=== PATIENT | female | born 1995 | race Caucasian/White ===

== ENCOUNTER 2022-10-10 02:44 | Emergency (ER) | payer OTHER, SELFPAY ==
--- NOTE | ~2022-10-10 | CT_ITS ---
EXAMINATION: CT ABDOMEN AND PELVIS WITHOUT CONTRAST CLINICAL INFORMATION: Left UVJ stone COMPARISON: None available. TECHNIQUE: Multidetector volumetric imaging was performed from the superior aspect of the liver through the pubic symphysis. Sagittal and coronal reformatted images were obtained on the technologist's workstation. This CT examination was performed using dose optimization techniques as appropriate, variously including the following: *Automated exposure control *Adjustment of mA and/or kV according to patient size (this includes techniques or standardized protocols for targeted exams where dose is matched to indication/reason for exam; i.e. extremities or head) *Use of iterative reconstruction technique DLP: 466 mGy-cm FINDINGS: LUNG BASES: The visualized lung bases are unremarkable. LIVER, GALLBLADDER, AND BILIARY TREE: The liver is normal in size, shape, and attenuation. No focal hepatic lesion or biliary ductal dilatation is identified on this noncontrast exam. The gallbladder is not clearly seen and may be contracted or absent. PANCREAS: Unremarkable. SPLEEN: Unremarkable. ADRENAL GLANDS: Unremarkable. KIDNEYS AND URETERS: No hydronephrosis or obstructing calculus identified bilaterally. BLADDER: Mildly distended and grossly unremarkable. GASTROINTESTINAL TRACT: No evidence of bowel obstruction or significant wall thickening. The appendix is unremarkable. No free air is seen. ABDOMINAL WALL: No significant hernia is appreciated. LYMPH NODES: Normal. VASCULAR: Unremarkable. PELVIC VISCERA: There is asymmetric prominence of the left adnexa, of uncertain clinical significance. Trace pelvic free fluid. OSSEOUS STRUCTURES: Unremarkable. CT/CT abdomen pelvis wo IV con IMPRESSION: 1. No hydronephrosis or obstructing calculus identified. 2. Asymmetric prominence of the left adnexa, of uncertain clinical significance. If there is clinical concern for acute ovarian pathology, this would be better assessed with pelvic ultrasound. 3. Trace pelvic free fluid, which is nonspecific and may be physiologic.
[2022-10-10 03:00] VITALS: BP 130/88; PULSE 88; O2SAT 98; BMI 27.4
[2022-10-10 03:05] VITALS: BP 104/70; PULSE 82; RESP 17; TEMP 37.1; O2SAT 97
--- NOTE | 2022-10-10 04:19 | MHC.EDTECH ---
PATIENT VITALS ARE STABLE AND ED ROUNDS ARE DONE WILL CONTINUE TO MONITOR.
--- NOTE | 2022-10-10 05:14 | ED_ITS ---
HPI - Abdominal Pain General Chief Complaint: Back Pain/Injury Stated Complaint: left plank pain Time Seen by Provider: 10/10/22 05:09 Source: patient Mode of arrival: ambulatory Limitations: no limitations History of Present Illness HPI narrative: Patient with no history of kidney stones does have family history of kidney stone noticed pain in the left flank radiating to the left lower abdomen since yesterday also has slight burning sensation when she urinates no blood in the urine no history of kidney stones in the past no fever or chills no nausea or vomiting no vaginal discharge no history of ovarian cyst Related Data Previous Rx's Medication Instructions Recorded cefuroxime axetil 250 mg tablet 250 mg PO BID 7 days #14 tabs 10/10/22 ibuprofen 600 mg tablet 600 mg PO Q6H PRN fever or pain 10/10/22 #30 tabs Allergies Allergy/AdvReac Type Severity Reaction Status Date / Time No Known Allergies Allergy Verified 10/10/22 03:13 Review of Systems Review of Systems Yes all other systems are reviewed and are negative [facility] Social History Social History Alcohol intake: never Smoked in Last 30 Days: No Use of substances other than those prescribed or required for medical reasons: No Advance Directives: No Advance Directives Information Provided: Yes Physical Exam ED Vital Signs: Vital Signs - 24 hr 10/10/22 03:05 10/10/22 05:31 10/10/22 05:48 Temperature 98.8 F 98.6 F Pulse Rate 82 62 Respiratory Rate 17 18 17 Blood Pressure 104/70 123/57 L Pulse Oximetry 97 97 Oxygen Delivery Method Room Air Room Air BMI result Body Mass Index 27.4 Appearance: Alert. Oriented X3. No acute distress. Eyes: PERRLA, No Nystagmus ENT: Pharynx normal. Oral Mucosa moist Neck: Normal inspection. Neck supple. CVS: Normal heart rate and rhythm. Pulses normal. Respiratory: No respiratory distress. Equal air entry bilateral, no wheezing/rales/rhonchi Abdomen: Soft and nontender. Bowel sounds are present, no mass palpable, no CVA tenderness Skin: Skin warm and dry. Normal skin color. Normal skin turgor. Extremities: No lower extremity edema. No calf tenderness Neuro: Oriented X 3. No motor deficit. No sensory deficit.No cerebellar signs , cranial nerves II-XII intact Medical Decision Making Medical Decision Making [facility] Narrative: Patient's CT scan negative for kidney stone shows slight fullness and left adnexa possible patient has ovarian cyst also has UTI I have discharged patient home on ibuprofen and Ceftin Lab Data [facility] Lab Attestation statement: I reviewed the patient's lab results. 10/10/22 05:43 10/10/22 05:43 Labs: Lab Results 10/10/22 10/10/22 10/10/22 Range/Units 05:11 05:11 05:43 WBC 12.0 H (4.8-10.8) X10*3/uL RBC 3.86 L (4.20-5.50) X10*6/uL Hgb 12.1 (12.0-16.0) g/dl Hct 36.3 L (37.0-47.0) % MCV 94.0 (80.0-98.0) fL MCH 31.3 (27.0-33.0) pg MCHC 33.3 (31.0-35.0) g/dl RDW 12.7 (11.0-16.0) % Plt Count 207 (160-400) X10*3/uL MPV 10.9 (9.4-12.3) fL Immature Gran % (Auto) 0.4 (0.0-0.4) % Neut % (Auto) 77.7 H (45-73) % Lymph % (Auto) 12.5 L (20-40) % [place] % (Auto) 9.1 (2-11) % Eos % (Auto) 0.1 (0-4) % Baso % (Auto) 0.2 (0-2) % Lymph # (Auto) 1.5 (1.2-4.9) X10*3/uL [place] # (Auto) 1.1 (0.1-1.2) X10*3/uL Eos # (Auto) 0.0 (0.0-0.4) X10*3/uL Baso # (Auto) 0.0 (0.0-0.2) X10*3/uL Abs Immat Gran (auto) 0.05 H (0.00-0.03) X10*3/uL Absolute Neuts (auto) 9.4 H (2.0-8.3) x10*3/uL Absolute Nucleated RBC 0.000 (0.0-0.012) X10*3/uL Nucleated RBC % (auto) 0.0 (0.0-0.2) /100WBC Sodium (135-145) mmol/L Potassium (3.3-5.1) mmol/L Chloride (96-108) mmol/L Carbon Dioxide (22-29) mmol/L Anion Gap (12-20) BUN (9-16) mg/dL Creatinine (0.5-1.4) mg/dL Estim Creat Clear Calc Estimated GFR Random Glucose (60-115) mg/dL Calcium (8.4-10.2) mg/dL Total Bilirubin (0.0-1.0) mg/dL AST (5-31) U/L ALT (0-31) U/L Alkaline Phosphatase (39-117) U/L Total Protein (6.5-8.0) g/dL Albumin (3.5-5.0) g/dL Urine Color Yellow Urine Appearance Hazy Urine pH 6.0 (5.0-9.0) Ur Specific [place] 1.015 (1.005-1.025) Urine Protein Negative (Neg-Trace) mg/dL Urine Glucose (UA) Negative (Negative) mg/dL Urine Ketones >=80 (Negative) mg/dL Urine Blood Negative (Negative) Urine Nitrite Negative (Negative) Ur Leukocyte Esterase Small (1+) H (Negative) Urine RBC 3-5 H (0-2) /HPF Urine WBC 11-20 H (0-5) /HPF Ur Squamous Epith Cells >20 (0-2) /HPF Urine Bacteria 1+ (None Seen) Hyaline Casts 0-2 (0-2) /LPF Urine Test NEGATIVE (NEGATIVE) 10/10/22 Range/Units 05:43 WBC (4.8-10.8) X10*3/uL RBC (4.20-5.50) X10*6/uL Hgb (12.0-16.0) g/dl Hct (37.0-47.0) % MCV (80.0-98.0) fL MCH (27.0-33.0) pg MCHC (31.0-35.0) g/dl RDW (11.0-16.0) % Plt Count (160-400) X10*3/uL MPV (9.4-12.3) fL Immature Gran % (Auto) (0.0-0.4) % Neut % (Auto) (45-73) % Lymph % (Auto) (20-40) % [place] % (Auto) (2-11) % Eos % (Auto) (0-4) % Baso % (Auto) (0-2) % Lymph # (Auto) (1.2-4.9) X10*3/uL [place] # (Auto) (0.1-1.2) X10*3/uL Eos # (Auto) (0.0-0.4) X10*3/uL Baso # (Auto) (0.0-0.2) X10*3/uL Abs Immat Gran (auto) (0.00-0.03) X10*3/uL Absolute Neuts (auto) (2.0-8.3) x10*3/uL Absolute Nucleated RBC (0.0-0.012) X10*3/uL Nucleated RBC % (auto) (0.0-0.2) /100WBC Sodium 136 (135-145) mmol/L Potassium 3.9 (3.3-5.1) mmol/L Chloride 107 (96-108) mmol/L Carbon Dioxide 21 L (22-29) mmol/L Anion Gap 12 (12-20) BUN 7 L (9-16) mg/dL Creatinine 0.65 (0.5-1.4) mg/dL Estim Creat Clear Calc 119.6 Estimated GFR > 60 Random Glucose 90 (60-115) mg/dL Calcium 8.9 (8.4-10.2) mg/dL Total Bilirubin 1.1 H (0.0-1.0) mg/dL AST 17 (5-31) U/L ALT 9 (0-31) U/L Alkaline Phosphatase 64 (39-117) U/L Total Protein 6.8 (6.5-8.0) g/dL Albumin 3.9 (3.5-5.0) g/dL Urine Color Urine Appearance Urine pH (5.0-9.0) Ur Specific [place] (1.005-1.025) Urine Protein (Neg-Trace) mg/dL Urine Glucose (UA) (Negative) mg/dL Urine Ketones (Negative) mg/dL Urine Blood (Negative) Urine Nitrite (Negative) Ur Leukocyte Esterase (Negative) Urine RBC (0-2) /HPF Urine WBC (0-5) /HPF Ur Squamous Epith Cells (0-2) /HPF Urine Bacteria (None Seen) Hyaline Casts (0-2) /LPF Urine Test (NEGATIVE) Medications Administered Discontinued Medications Generic Name Dose Route Start Last Admin Trade Name Freq PRN Reason Stop Dose Admin Cefuroxime Axetil 250 mg 10/10/22 06:17 10/10/22 06:29 Cefuroxime Axetil 250 Mg Tablet PO 10/10/22 06:18 250 mg ONCE ONE Administration Sodium Chloride 1,000 mls @ 999 mls/hr 10/10/22 05:14 10/10/22 06:36 Ns IV 10/10/22 06:14 Infused .Q1H1M ONE Infusion Ketorolac Tromethamine 30 mg 10/10/22 05:14 10/10/22 05:30 Ketorolac Tromethamine 30 Mg/Ml Vial IVPUSH 10/10/22 05:15 30 mg ONCE ONE Administration Morphine Sulfate 4 mg 10/10/22 05:14 10/10/22 05:31 Morphine Sulfate 4 Mg/Ml Cartridge IVPUSH 10/10/22 05:15 4 mg ONCE ONE Administration Protocol Ondansetron HCl 4 mg 10/10/22 05:14 10/10/22 05:32 Ondansetron Hcl 4 Mg/2 Ml Vial IVPUSH 10/10/22 05:15 4 mg ONCE ONE Administration Discharge Plan Discharge Clinical Impression: UTI (urinary tract infection), Ovarian cyst Patient Disposition: Home, Self-Care Instructions: Ovarian Cyst (ED), Urinary Tract Infection in Women (ED) Additional Instructions: Possible you have small cyst on the left ovary also CT scan did not show any stone You have urinary tract infection drink plenty of fluid take antibiotic as prescribed Follow with PCP if not better Prescriptions: New cefuroxime axetil 250 mg tablet 250 mg PO BID 7 Days Qty: 14 0RF ibuprofen 600 mg tablet 600 mg PO Q6H PRN (Reason: fever or pain) Qty: 30 0RF Interventions: ED Discharge Assessment Last Done: 10/10/22 06:40 Discharge Date/Time: 10/10/22 06:44
[2022-10-10 05:18] LABS: UPreg QC Valid YES; Urine Pregnancy NEGATIVE (NEGATIVE)
[2022-10-10 05:19] LABS: Appearance Urine Hazy; Color Urine Yellow; Glucose Urine UA Negative (Negative); Leukocyte Esterase Urine Small (1+) (Negative); Nitrite Urine Negative (Negative); Specific Gravity - Urine 1.015 (1.005-1.025); UMIC TRIGGER UACC YES; Urine Blood Negative (Negative); Urine Ketones >=80 mg/dL (Negative); Urine Protein Negative (Neg-Trace)
[2022-10-10 05:28] LABS: Bacteria Urine 1+ (None Seen); Hyaline Casts Urine 0-2 /LPF (0-2); Squamous Epithelial Cell Urine >20 /HPF (0-2); UACC Culture Trigger YES
[2022-10-10] MEDS: 0.9 % Sodium Chloride 1,000 ML 999 ML IV (05:30)
[2022-10-10] MEDS: Ketorolac Tromethamine 30 MG/ML VIAL IVPUSH (05:30)
[2022-10-10 05:31] VITALS: RESP 18
[2022-10-10] MEDS: Morphine Sulfate 4 MG/ML CARTRIDGE IVPUSH (05:31)
[2022-10-10] MEDS: ondansetron HCL 4 MG/2 ML VIAL IVPUSH (05:32)
[2022-10-10 05:48] VITALS: BP 123/57; PULSE 62; RESP 17; TEMP 37; O2SAT 97
[2022-10-10 05:50] LABS: Basophils Percent Auto 0.2 % (0-2); Eosinophils Percent Auto 0.1 % (0-4); Hematocrit 36.3 % (37.0-47.0); Hemoglobin 12.1 g/dl (12.0-16.0); Imm Gran Abs Auto 0.05 X10*3/uL (0.00-0.03); Imm Gran Pct Auto 0.4 % (0.0-0.4); Lymphocytes Absolute Auto 1.5 X10*3/uL (1.2-4.9); Lymphocytes Percent Auto 12.5 % (20-40); MANUAL DIFF FLAG NO; Mean Corpuscular HGB Conc 33.3 g/dl (31.0-35.0); Mean Corpuscular Hemoglobin 31.3 pg (27.0-33.0); Mean Platelet Volume 10.9 fL (9.4-12.3); Monocytes Absolute Auto 1.1 X10*3/uL (0.1-1.2); Monocytes Percent Auto 9.1 % (2-11); Neutrophils Absolute Auto 9.4 x10*3/uL (2.0-8.3); Neutrophils Percent Auto 77.7 % (45-73); Platelet Count 207 X10*3/uL (160-400); Red Blood Count 3.86 X10*6/uL (4.20-5.50); Red Cell Distribution Width 12.7 % (11.0-16.0)
[2022-10-10 06:09] LABS: Alanine Aminotransferase 9 U/L (0-31); Albumin Level 3.9 g/dL (3.5-5.0); Alkaline Phosphatase 64 U/L (39-117); Anion Gap 12 (12-20); Aspartate Amino Transferase 17 U/L (5-31); Bilirubin Total 1.1 mg/dL (0.0-1.0); Blood Urea Nitrogen 7 mg/dL (9-16); Calcium 8.9 mg/dL (8.4-10.2); Carbon Dioxide 21 mmol/L (22-29); Chloride 107 mmol/L (96-108); Creatinine Clr Calc Pharmacy 119.6; Estimated Glomerular Filt Rate > 60; Glucose Random 90 mg/dL (60-115); Potassium 3.9 mmol/L (3.3-5.1); Sodium 136 mmol/L (135-145); Total Protein 6.8 g/dL (6.5-8.0)
--- NOTE | 2022-10-10 06:36 | PC.NURSE ---
patient in the process of being discharged
== END 2022-10-10 06:44 | disposition home or self-care (01) ==
PROVIDERS: Emergency Provider Internal Medicine
DX: N39.0 Urinary tract infection, site not specified (principal); N83.202 Unspecified ovarian cyst, left side; Z87.442 Personal history of urinary calculi
CPT/HCPCS: 36415; 74176; 80053; 81001; 81025; 85025; 87086; 96361; 96374; 96375; 99284; J1885; J2270; J2405

== ENCOUNTER 2022-11-17 04:40 | Emergency (ER) | payer OTHER, SELFPAY ==
--- NOTE | ~2022-11-17 | US_ITS ---
EXAMINATION: US PELVIS CLINICAL INFORMATION: Pelvic pain COMPARISON: CT scan from 10/10/2022 TECHNIQUE: Ultrasound of the pelvis is performed using both transabdominal and transvaginal transducers along with Doppler. Transvaginal imaging is performed due to inadequate visualization transabdominally. LMP 11/03/2022 FINDINGS: Uterus: The uterus is anteverted and measures 3.4 x 3.0 x 1.9 cm. With a volume of 10.2 mL The double wall endometrial thickness is 0.4 mm. The uterus is smooth in contour and has normal myometrial echogenicity. No visible fibroid. Adnexa: Both ovaries are visualized. There is normal color flow to the adnexa. There is no ovarian torsion. There is no pelvic ascites or fluid collection. Right ovary measures 3.4 x 3.0 x 1.9 cm. With a volume of 10.2 mL. Left ovary measures 3.0 x 3.5 x 1.8 cm. With a volume of 9.9 and 1.4 x 1.5 x 1.6 cm hemorrhagic heterogeneous cysts. No free fluid seen. US/US pelvic and transvaginal IMPRESSION: Normal study with likely small corpus luteum cyst on the left
[2022-11-17 05:07] VITALS: BP 108/76; PULSE 110; RESP 16; TEMP 36.9; O2SAT 100; BMI 30.2
[2022-11-17 05:14] VITALS: BP 117/76; PULSE 101; RESP 18; TEMP 37.1; O2SAT 98
[2022-11-17 05:55] LABS: Influenza A PCR NEGATIVE (Negative); Influenza B PCR NEGATIVE (Negative); Resp Syncy Virus RNA Qual PCR NEGATIVE (Negative); SARS COV2 PCR INHOUSE NEGATIVE (Negative)
--- NOTE | 2022-11-17 07:03 | ED_ITS ---
HPI - General Adult General Chief complaint: General Medical Stated complaint: flu like symptoms Time Seen by Provider: 11/17/22 06:31 Source: patient and RN notes reviewed Mode of arrival: ambulatory Limitations: no limitations History of Present Illness HPI narrative: This is a 27-year-old female, with a past medical history of asthma, presenting to the emergency department with complaints of body aches, fever, chills, sore throat, dry cough, nausea, vomiting, lower abdominal pain, and diarrhea times Thursday. Patient states that initially her symptoms started off with body aches. She states that her symptoms have since progressed despite taking [id number] cold and flu medication. She states that she has been unable to tolerate p.o. since the onset of her symptoms. She denies any urinary symptoms. She endorses some changes in her vaginal discharge over the last several days. No other complaints or concerns at this time. MD complaint: Body aches, fevers, chills, abdominal pain Onset (ago): day(s) Radiation: non-radiation Severity: moderate Quality: aching Pain Consistency: constant Relieving factors: none Exacerbating factors: none Associated symptoms: denies other symptoms Treatments prior to arrival: none Related Data Previous Rx's Medication Instructions Recorded cefuroxime axetil 250 mg tablet 250 mg PO BID 7 days #14 tabs 10/10/22 ibuprofen 600 mg tablet 600 mg PO Q6H PRN fever or pain 10/10/22 #30 tabs doxycycline hyclate 100 mg tablet 100 mg PO BID 7 days #14 tabs 11/17/22 metronidazole 500 mg tablet 500 mg PO BID 14 days #28 tabs 11/17/22 Allergies Allergy/AdvReac Type Severity Reaction Status Date / Time No Known Allergies Allergy Verified 10/10/22 03:13 Review of Systems Review of Systems: Yes all other systems are reviewed and are negative Constitutional: Constitutional: Reports as per [facility] Social History Social History Alcohol intake: never Smoked in Last 30 Days: No Use of substances other than those prescribed or required for medical reasons: No Advance Directives: No Advance Directives Information Provided: Yes Physical Exam ED Vital Signs: Vital Signs - 24 hr 11/17/22 05:07 11/17/22 05:14 11/17/22 07:18 Temperature 98.5 F 98.7 F 98.2 F Pulse Rate 110 H 101 H 85 Respiratory Rate 16 18 20 Blood Pressure 108/76 117/76 122/87 Pulse Oximetry 100 98 98 Oxygen Delivery Method Room Air Room Air Room Air 11/17/22 08:24 Temperature 98.4 F Pulse Rate 74 Respiratory Rate 16 Blood Pressure 97/68 Pulse Oximetry 100 Oxygen Delivery Method Room Air BMI result Body Mass Index 30.2 Const General: cooperative, comfortable and no acute distress Orientation/consciousness: patient oriented x3 Limitations: no limitations HENMT Other: Oropharynx is mildly erythematous and edematous. Uvula is midline Head: Yes normal to inspection, Yes normocephalic and Yes atraumatic Ears: hearing grossly normal bilaterally General nose exam: Normal external nose present Face and sinus: Yes normal facial exam Mouth: Normal oral and palatal mucosa present, oropharynx normal and moist mucous membranes Throat: Yes posterior oropharynx normal Eyes General: appearance normal, both eyes and all related structures Eyelids: Yes eyelids normal Conjunctivae: conjunctivae normal Sclerae: sclerae normal Pupils: Equal, round and reactive pupils present EOM: EOMs intact bilaterally Neck Neck: Yes normal visual inspection, Yes full ROM and Yes no lymphadenopathy Lymphatic: no lymphadenopathy noted Chest Chest palpation & inspection: normal inspection of the chest Resp Effort & Inspection: normal respiratory effort and able to speak in complete sentences Auscultation: clear to auscultation bilaterally, no crackles, no rales, no rhonchi and no wheezes Cardio Rate: regular rate Rhythm: regular rhythm Heart sounds: S1 normal heart sound present and S2 normal heart sound present GI Other: Suprapubic tenderness to palpation, normoactive bowel sounds present in all 4 quadrants. Inspection: Yes normal to inspection Other: Pelvic examination performed, JANICE Root present during the entire examination. Scant yellow thin vaginal discharge noted in the vaginal vault. General: Yes bladder normal to palpation External Female Exam: normal external appearance, normal appearance of the urethra, No Abnormal introitus, No externally tender, No external swelling, No lesion, No laceration, No External ecchymosis (female), No urethral discharge and No lesion Speculum Exam - Vagina: normal appearance of the vagina, normal palpation and introitus not gaping Speculum Exam - Cervix: Cervical os closed Bimanual exam- vagina & uterus: normal palpation, uterine size normal and bladder normal to palpation Skin General skin exam: no rashes or lesions noted Trauma: no lacerations or abrasions Wounds: no wounds Neuro General: patient oriented x3 and moves all extremities Cranial nerves: Yes Equal, round and reactive pupils present Extrem General: Yes normal to inspection Right upper extremity: normal to inspection Left upper extremity: normal to inspection Right lower extremity: normal to inspection Left lower extremity: normal to inspection Course Reevaluation(s) Reevaluation #1: Patient was complaining of burning epigastric pain, GI cocktail was ordered and patient's symptoms have since resolved. She is still reporting lower abdominal pain, with vaginal discharge. Pelvic examination was performed, bacterial vaginosis, gonorrhea chlamydia and Trichomonas testing was performed. Patient does have cervical motion tenderness on examination. Given tenderness, will obtain pelvic ultrasound for further evaluation. Time: 09:35 Reevaluation #2: Ultrasound was reviewed revealing a corpus luteal cyst on the left, otherwise no ovarian torsion or tubo-ovarian abscess. Patient tested positive for chlamydia, will treat with ceftriaxone, doxycycline, and Flagyl. Discussed the importance of taking the entire course of antibiotics and to follow-up with her primary care physician as well as all other sexual partners as they need treatment as well. Patient understands and agrees with plan. Patient has no further questions. Patient stable for discharge. Time: 14:33 Medications Administered Discontinued Medications Generic Name Dose Route Start Last Admin Trade Name Freq PRN Reason Stop Dose Admin Acetaminophen 975 mg 11/17/22 06:53 11/17/22 08:09 Acetaminophen 325 Mg Tablet PO 11/17/22 06:54 975 mg ONCE ONE Administration Al Hydroxide/Mg Hydroxide 30 ml 11/17/22 09:13 11/17/22 09:20 Magnesium Hydrox/Alum Hydrox 30 Ml Oral.Susp PO 11/17/22 09:14 30 ml ONCE ONE Administration Sodium Chloride 1,000 mls @ 999 mls/hr 11/17/22 06:54 11/17/22 09:28 Ns IV 11/17/22 07:54 Infused .Q1H1M ONE Infusion Lidocaine HCl 15 ml 11/17/22 09:13 11/17/22 09:20 Lidocaine Hcl Viscous 2 % 15 Ml Solution MUCOUS MEM 11/17/22 09:14 15 ml ONCE ONE Administration Ondansetron HCl 4 mg 11/17/22 06:53 11/17/22 08:09 Ondansetron Odt 4 Mg Tab.Cecile RUSSO 11/17/22 06:54 4 mg ONCE ONE Administration Medical Decision Making Medical Decision Making [facility] Narrative: 27-year-old female presenting to the emergency department for evaluation fevers chills, nausea, vomiting, diarrhea, sore throat and cough x 3 days. On arrival, mildly tachycardic at 110 beats per minute, all other vital signs within normal limits. Differential diagnoses include influenza, RSV, COVID, URI, ectopic , UTI, . Given inability to tolerate p.o., current nausea and abdominal pain it is normal will obtain basic labs, UA, and 1 L of IV fluids. Differential Diagnosis Differential Diagnoses: The differential diagnosis associated with the presentation includes See above Admission/Observation Consideration of admission/observation: Escalation of care including admission/observation considered Patient would have been admitted to the hospital had her work up had any findings where hospital admission was appropriate and her clinical presentation warranted hospital admission. Lab Data [facility] Lab Attestation statement: I reviewed the patient's lab results. Negative COVID, RSV, flu 11/17/22 08:05 11/17/22 08:05 Labs: Lab Results 11/17/22 11/17/22 11/17/22 Range/Units 05:11 08:05 08:05 WBC 12.0 H (4.8-10.8) X10*3/uL RBC 4.22 (4.20-5.50) X10*6/uL Hgb 13.4 (12.0-16.0) g/dl Hct 39.5 (37.0-47.0) % MCV 93.6 (80.0-98.0) fL MCH 31.8 (27.0-33.0) pg MCHC 33.9 (31.0-35.0) g/dl RDW 12.6 (11.0-16.0) % Plt Count 291 D (160-400) X10*3/uL MPV 11.1 (9.4-12.3) fL Immature Gran % (Auto) 0.3 (0.0-0.4) % Neut % (Auto) 68.8 (45-73) % Lymph % (Auto) 17.9 L (20-40) % [place] % (Auto) 12.7 H (2-11) % Eos % (Auto) 0.0 (0-4) % Baso % (Auto) 0.3 (0-2) % Lymph # (Auto) 2.1 (1.2-4.9) X10*3/uL [place] # (Auto) 1.5 H (0.1-1.2) X10*3/uL Eos # (Auto) 0.0 (0.0-0.4) X10*3/uL Baso # (Auto) 0.0 (0.0-0.2) X10*3/uL Abs Immat Gran (auto) 0.03 (0.00-0.03) X10*3/uL Absolute Neuts (auto) 8.2 (2.0-8.3) x10*3/uL Absolute Nucleated RBC 0.000 (0.0-0.012) X10*3/uL Nucleated RBC % (auto) 0.0 (0.0-0.2) /100WBC Smear Tech's Comments VERIFIED Sodium 140 (135-145) mmol/L Potassium 3.5 (3.3-5.1) mmol/L Chloride 106 (96-108) mmol/L Carbon Dioxide 23 (22-29) mmol/L Anion Gap 15 (12-20) BUN 6 L (9-16) mg/dL Creatinine 0.77 (0.5-1.4) mg/dL Estim Creat Clear Calc 101.7 Estimated GFR > 60 Random Glucose 96 (60-115) mg/dL Calcium 9.3 (8.4-10.2) mg/dL Magnesium 2.0 (1.6-2.6) mg/dL Total Bilirubin 0.3 (0.0-1.0) mg/dL Direct Bilirubin 0.2 (0.0-0.5) mg/dL AST 13 (5-31) U/L ALT 8 (0-31) U/L Alkaline Phosphatase 90 (39-117) U/L Total Protein 7.8 (6.5-8.0) g/dL Albumin 4.1 (3.5-5.0) g/dL Lipase 15 (8-78) U/L Urine Color Urine Appearance Urine pH (5.0-9.0) Ur Specific [place] (1.005-1.025) Urine Protein (Neg-Trace) mg/dL Urine Glucose (UA) (Negative) mg/dL Urine Ketones (Negative) mg/dL Urine Blood (Negative) Urine Nitrite (Negative) Ur Leukocyte Esterase (Negative) Urine RBC (0-2) /HPF Urine WBC (0-5) /HPF Ur Squamous Epith Cells (0-2) /HPF Urine Bacteria (None Seen) Hyaline Casts (0-2) /LPF Urine Test (NEGATIVE) Chlam trachomat DNA PCR (Not Detect.) Influenza Type A (PCR) NEGATIVE (Negative) Influenza Type B (PCR) NEGATIVE (Negative) N.gonorrhoeae DNA (PCR) (Not Detect.) RSV RNA Qual (PCR) NEGATIVE (Negative) SARS-CoV-2 RNA (RT-PCR) NEGATIVE (Negative) S. pyogenes GrpA CLYDE (Negative) 11/17/22 11/17/22 11/17/22 Range/Units 08:05 08:27 08:27 WBC (4.8-10.8) X10*3/uL RBC (4.20-5.50) X10*6/uL Hgb (12.0-16.0) g/dl Hct (37.0-47.0) % MCV (80.0-98.0) fL MCH (27.0-33.0) pg MCHC (31.0-35.0) g/dl RDW (11.0-16.0) % Plt Count (160-400) X10*3/uL MPV (9.4-12.3) fL Immature Gran % (Auto) (0.0-0.4) % Neut % (Auto) (45-73) % Lymph % (Auto) (20-40) % [place] % (Auto) (2-11) % Eos % (Auto) (0-4) % Baso % (Auto) (0-2) % Lymph # (Auto) (1.2-4.9) X10*3/uL [place] # (Auto) (0.1-1.2) X10*3/uL Eos # (Auto) (0.0-0.4) X10*3/uL Baso # (Auto) (0.0-0.2) X10*3/uL Abs Immat Gran (auto) (0.00-0.03) X10*3/uL Absolute Neuts (auto) (2.0-8.3) x10*3/uL Absolute Nucleated RBC (0.0-0.012) X10*3/uL Nucleated RBC % (auto) (0.0-0.2) /100WBC Smear Tech's Comments Sodium (135-145) mmol/L Potassium (3.3-5.1) mmol/L Chloride (96-108) mmol/L Carbon Dioxide (22-29) mmol/L Anion Gap (12-20) BUN (9-16) mg/dL Creatinine (0.5-1.4) mg/dL Estim Creat Clear Calc Estimated GFR Random Glucose (60-115) mg/dL Calcium (8.4-10.2) mg/dL Magnesium (1.6-2.6) mg/dL Total Bilirubin (0.0-1.0) mg/dL Direct Bilirubin (0.0-0.5) mg/dL AST (5-31) U/L ALT (0-31) U/L Alkaline Phosphatase (39-117) U/L Total Protein (6.5-8.0) g/dL Albumin (3.5-5.0) g/dL Lipase (8-78) U/L Urine Color Yellow Urine Appearance Clear Urine pH 6.0 (5.0-9.0) Ur Specific [place] >= 1.030 H (1.005-1.025) Urine Protein 30 (1+) H (Neg-Trace) mg/dL Urine Glucose (UA) Negative (Negative) mg/dL Urine Ketones >=160 (Negative) mg/dL Urine Blood Negative (Negative) Urine Nitrite Negative (Negative) Ur Leukocyte Esterase Negative (Negative) Urine RBC 0-2 (0-2) /HPF Urine WBC 0-5 (0-5) /HPF Ur Squamous Epith Cells 3-5 (0-2) /HPF Urine Bacteria 1+ (None Seen) Hyaline Casts 0-2 (0-2) /LPF Urine Test NEGATIVE (NEGATIVE) Chlam trachomat DNA PCR (Not Detect.) Influenza Type A (PCR) (Negative) Influenza Type B (PCR) (Negative) N.gonorrhoeae DNA (PCR) (Not Detect.) RSV RNA Qual (PCR) (Negative) SARS-CoV-2 RNA (RT-PCR) (Negative) S. pyogenes GrpA CLYDE Negative (Negative) 11/17/22 Range/Units 09:32 WBC (4.8-10.8) X10*3/uL RBC (4.20-5.50) X10*6/uL Hgb (12.0-16.0) g/dl Hct (37.0-47.0) % MCV (80.0-98.0) fL MCH (27.0-33.0) pg MCHC (31.0-35.0) g/dl RDW (11.0-16.0) % Plt Count (160-400) X10*3/uL MPV (9.4-12.3) fL Immature Gran % (Auto) (0.0-0.4) % Neut % (Auto) (45-73) % Lymph % (Auto) (20-40) % [place] % (Auto) (2-11) % Eos % (Auto) (0-4) % Baso % (Auto) (0-2) % Lymph # (Auto) (1.2-4.9) X10*3/uL [place] # (Auto) (0.1-1.2) X10*3/uL Eos # (Auto) (0.0-0.4) X10*3/uL Baso # (Auto) (0.0-0.2) X10*3/uL Abs Immat Gran (auto) (0.00-0.03) X10*3/uL Absolute Neuts (auto) (2.0-8.3) x10*3/uL Absolute Nucleated RBC (0.0-0.012) X10*3/uL Nucleated RBC % (auto) (0.0-0.2) /100WBC Smear Tech's Comments Sodium (135-145) mmol/L Potassium (3.3-5.1) mmol/L Chloride (96-108) mmol/L Carbon Dioxide (22-29) mmol/L Anion Gap (12-20) BUN (9-16) mg/dL Creatinine (0.5-1.4) mg/dL Estim Creat Clear Calc Estimated GFR Random Glucose (60-115) mg/dL Calcium (8.4-10.2) mg/dL Magnesium (1.6-2.6) mg/dL Total Bilirubin (0.0-1.0) mg/dL Direct Bilirubin (0.0-0.5) mg/dL AST (5-31) U/L ALT (0-31) U/L Alkaline Phosphatase (39-117) U/L Total Protein (6.5-8.0) g/dL Albumin (3.5-5.0) g/dL Lipase (8-78) U/L Urine Color Urine Appearance Urine pH (5.0-9.0) Ur Specific [place] (1.005-1.025) Urine Protein (Neg-Trace) mg/dL Urine Glucose (UA) (Negative) mg/dL Urine Ketones (Negative) mg/dL Urine Blood (Negative) Urine Nitrite (Negative) Ur Leukocyte Esterase (Negative) Urine RBC (0-2) /HPF Urine WBC (0-5) /HPF Ur Squamous Epith Cells (0-2) /HPF Urine Bacteria (None Seen) Hyaline Casts (0-2) /LPF Urine Test (NEGATIVE) Chlam trachomat DNA PCR DETECTED A (Not Detect.) Influenza Type A (PCR) (Negative) Influenza Type B (PCR) (Negative) N.gonorrhoeae DNA (PCR) NOT DETECTED (Not Detect.) RSV RNA Qual (PCR) (Negative) SARS-CoV-2 RNA (RT-PCR) (Negative) S. pyogenes GrpA CLYDE (Negative) Radiology Impression Discussion of test interpretation with radiology: I have reviewed the radiologist's reading. Discharge Plan Discharge Clinical Impression: Acute pelvic inflammatory disease (PID), Chlamydia Patient Disposition: Home, Self-Care Instructions: Pelvic Inflammatory Disease (ED), Chlamydia (ED), Sexually Transmitted Diseases (ED), Safe Sex Practices (ED) Additional Instructions: You tested negative for COVID, flu, and strep throat. You tested positive for chlamydia today. We are treating you with a dose of ceftriaxone in the department today as well as prescription of doxycycline and Flagyl. Please complete entire course of antibiotics even if your feeling better. Do not have intercourse until you are completely through all your medications. Please inform all sexual partners that you tested positive for chlamydia as they also need treatment as well. Your ultrasound showed a cyst on the left otherwise it was unremarkable. You may take ibuprofen or Tylenol as needed for pain If any new or worsening symptoms occur including but not limited to worsening pain, nausea, vomiting, chest pain or shortness of breath, please return for re- evaluation. Prescriptions: New doxycycline hyclate 100 mg tablet 100 mg PO BID 7 Days Qty: 14 0RF metronidazole 500 mg tablet 500 mg PO BID 14 Days Qty: 28 0RF No Action cefuroxime axetil 250 mg tablet 250 mg PO BID 7 Days Qty: 14 0RF ibuprofen 600 mg tablet 600 mg PO Q6H PRN (Reason: fever or pain) Qty: 30 0RF
[2022-11-17 07:18] VITALS: BP 122/87; PULSE 85; RESP 20; TEMP 36.8; O2SAT 98
[2022-11-17] MEDS: 0.9 % Sodium Chloride 1,000 ML 999 ML IV (08:07)
[2022-11-17] MEDS: Ondansetron ODT 4 MG TAB.RAPDIS TRANSLINGU (08:09)
[2022-11-17] MEDS: Acetaminophen 325 MG TABLET 975 MG PO (08:09)
[2022-11-17 08:18] LABS: Basophils Percent Auto 0.3 % (0-2); Hematocrit 39.5 % (37.0-47.0); Hemoglobin 13.4 g/dl (12.0-16.0); Imm Gran Abs Auto 0.03 X10*3/uL (0.00-0.03); Imm Gran Pct Auto 0.3 % (0.0-0.4); Lymphocytes Absolute Auto 2.1 X10*3/uL (1.2-4.9); Lymphocytes Percent Auto 17.9 % (20-40); MANUAL DIFF FLAG SCAN; Mean Corpuscular HGB Conc 33.9 g/dl (31.0-35.0); Mean Corpuscular Hemoglobin 31.8 pg (27.0-33.0); Mean Corpuscular Volume 93.6 fL (80.0-98.0); Mean Platelet Volume 11.1 fL (9.4-12.3); Monocytes Absolute Auto 1.5 X10*3/uL (0.1-1.2); Monocytes Percent Auto 12.7 % (2-11); Neutrophils Absolute Auto 8.2 x10*3/uL (2.0-8.3); Neutrophils Percent Auto 68.8 % (45-73); Platelet Count 291 X10*3/uL (160-400); Red Blood Count 4.22 X10*6/uL (4.20-5.50); Red Cell Distribution Width 12.6 % (11.0-16.0); SCAN SMEAR FLAG 1
[2022-11-17 08:24] VITALS: BP 97/68; PULSE 74; RESP 16; TEMP 36.9; O2SAT 100
[2022-11-17 08:28] LABS: IDNOW Serial# 08D9AD1C; Strep A Nucleic Acid Negative (Negative)
[2022-11-17 08:36] LABS: Appearance Urine Clear; Color Urine Yellow; Glucose Urine UA Negative (Negative); Leukocyte Esterase Urine Negative (Negative); Nitrite Urine Negative (Negative); Specific Gravity - Urine >= 1.030 (1.005-1.025); UMIC TRIGGER UACC YES; Urine Blood Negative (Negative); Urine Ketones >=160 mg/dL (Negative); Urine Protein 30 (1+) mg/dL (Neg-Trace)
[2022-11-17 08:39] LABS: UPreg QC Valid YES; Urine Pregnancy NEGATIVE (NEGATIVE)
[2022-11-17 08:39] LABS: Alanine Aminotransferase 8 U/L (0-31); Albumin Level 4.1 g/dL (3.5-5.0); Alkaline Phosphatase 90 U/L (39-117); Anion Gap 15 (12-20); Aspartate Amino Transferase 13 U/L (5-31); Bilirubin Direct 0.2 mg/dL (0.0-0.5); Bilirubin Total 0.3 mg/dL (0.0-1.0); Blood Urea Nitrogen 6 mg/dL (9-16); Calcium 9.3 mg/dL (8.4-10.2); Carbon Dioxide 23 mmol/L (22-29); Chloride 106 mmol/L (96-108); Creatinine Clr Calc Pharmacy 101.7; Estimated Glomerular Filt Rate > 60; Glucose Random 96 mg/dL (60-115); Lipase 15 U/L (8-78); Potassium 3.5 mmol/L (3.3-5.1); SLIDE REVIEW VERIFIED; Sodium 140 mmol/L (135-145); Total Protein 7.8 g/dL (6.5-8.0)
[2022-11-17 08:50] LABS: Bacteria Urine 1+ (None Seen); Hyaline Casts Urine 0-2 /LPF (0-2); RBC Urine 0-2 /HPF (0-2); WBC Urine 0-5 /HPF (0-5)
[2022-11-17] MEDS: Magnesium Hydrox/Alum Hydrox 30 ML ORAL.SUSP PO (09:20)
[2022-11-17] MEDS: Lidocaine HCl Viscous 2 % 15 ML SOLUTION MUCOUS MEM (09:20)
[2022-11-17 11:14] LABS: CT PCR DETECTED (Not Detect.); NG PCR NOT DETECTED (Not Detect.)
[2022-11-17 14:56] VITALS: BP 133/87; PULSE 70; RESP 16; TEMP 36.6; O2SAT 100
[2022-11-17] MEDS: cefTRIAXone sodium 500 MG, Lidocaine HCl 1 % MPF 1 ML IM (15:00)
[2022-11-18 09:28] LABS: BV Int Neg Control Negative (Negative); BV Int Pos Control Positive (Positive)
== END 2022-11-17 15:05 | disposition home or self-care (01) ==
PROVIDERS: Physician Assistant Medical; Emergency Provider Emergency Medicine; PCP Pediatrics
DX: N73.0 Acute parametritis and pelvic cellulitis (principal); A74.9 Chlamydial infection, unspecified; M79.10 Myalgia, unspecified site; R50.9 Fever, unspecified; R05.9 Cough, unspecified; R10.2 Pelvic and perineal pain; R11.2 Nausea with vomiting, unspecified; Z20.822 Contact with and (suspected) exposure to COVID-19; Z20.828 Contact with and (suspected) exposure to other viral communicable diseases; Z79.899 Other long term (current) drug therapy
CPT/HCPCS: 0241U; 0353U; 36415; 76830; 76856; 80048; 80076; 81001; 81025; 83690; 83735; 85025; 87480; 87510; 87651; 87660; 96360; 96372; 99284; 99285; J0696

== ENCOUNTER 2023-02-25 13:44 | Emergency (ER) | payer OTHER, SELFPAY ==
[2023-02-25 15:09] VITALS: BP 121/60; PULSE 73; RESP 18; TEMP 36.4; O2SAT 100; BMI 27.5
--- NOTE | 2023-02-25 15:10 | ED_ITS ---
HPI - General Adult General Chief complaint: Urogenital-Female Stated complaint: ? UTI Related Data Previous Rx's Medication Instructions Recorded cefuroxime axetil 250 mg tablet 250 mg PO BID 7 days #14 tabs 10/10/22 ibuprofen 600 mg tablet 600 mg PO Q6H PRN fever or pain 10/10/22 #30 tabs doxycycline hyclate 100 mg tablet 100 mg PO BID 7 days #14 tabs 11/17/22 metronidazole 500 mg tablet 500 mg PO BID 14 days #28 tabs 11/17/22 Allergies Allergy/AdvReac Type Severity Reaction Status Date / Time No Known Allergies Allergy Verified 02/25/23 15:12 [facility] Social History Social History Alcohol intake: never Advance Directives: No Physical Exam ED Vital Signs: BMI result Body Mass Index 27.5 Course Course Course Narrative: This is an RME: Additional HPI, ROS, PE not included below will be deferred to primary provider. This is [id number] presenting to the emergency department with complaints of urinary frequency, urgency, dysuria times several days. No abnormal vaginal discharge or bleeding. No concerns for sexually transmitted infections. She has a history of urinary tract infections in the past and symptoms feel similar. No other complaints or concerns at this time. Plan: UA, U preg Reevaluation(s) Reevaluation #1: pt eloped prior to completing treatment Discharge Plan Discharge Clinical Impression: Dysuria Patient Disposition: Left W/O Completing Treatment Prescriptions: No Action cefuroxime axetil 250 mg tablet 250 mg PO BID 7 Days Qty: 14 0RF ibuprofen 600 mg tablet 600 mg PO Q6H PRN (Reason: fever or pain) Qty: 30 0RF doxycycline hyclate 100 mg tablet 100 mg PO BID 7 Days Qty: 14 0RF metronidazole 500 mg tablet 500 mg PO BID 14 Days Qty: 28 0RF Discharge Date/Time: 02/25/23 17:31
== END 2023-02-25 17:31 | disposition left against medical advice (07) ==
PROVIDERS: Emergency Provider Emergency Medicine
DX: R30.0 Dysuria (principal); R35.0 Frequency of micturition; Z53.21 Procedure and treatment not carried out due to patient leaving prior to being seen by health care provider
CPT/HCPCS: 99281

== ENCOUNTER 2023-04-25 22:36 | Emergency (ER) | payer OTHER, SELFPAY ==
--- NOTE | ~2023-04-25 | CT_ITS ---
EXAMINATION CT HEAD WITHOUT CONTRAST CT CERVICAL SPINE WITHOUT CONTRAST CLINICAL INFORMATION: Injury, pain COMPARISON: None TECHNIQUE: CT of the head was performed without intravenous contrast. Reformatted axial, coronal, and sagittal images were reviewed. Then, multidetector CT of the cervical spine was performed without intravenous contrast. Reformatted axial, coronal and sagittal images were reviewed. This CT examination was performed using dose optimization techniques as appropriate, variously including the following: *Automated exposure control *Adjustment of mA and/or kV according to patient size (this includes techniques or standardized protocols for targeted exams where dose is matched to indication/reason for exam; i.e. extremities or head) *Use of iterative reconstruction technique DLP: 832 mGy-cm FINDINGS: HEAD: No intracranial hemorrhage, extra-axial fluid collection, or midline shift is identified. Rubio-white matter differentiation is preserved. The ventricles are within normal limits. Basal cisterns are within normal limits. Left maxillary mucous retention cyst. Mastoid air cells and middle ear cavities are clear. No acute calvarial fractures. CERVICAL SPINE: There is no fracture, malalignment or prevertebral soft tissue abnormality seen in the cervical spine. There is no abnormal widening of the predental space, separation of the lateral masses of C1 or facet joint distraction. Vertebral body and intervertebral disc height are normal. No significant central canal or neuroforaminal stenosis. The visualized portions of the lung parenchyma is unremarkable. CT/CT head/brain wo IV con IMPRESSION: CT HEAD: 1. No acute intracranial abnormality. CT CERVICAL SPINE: 1. No acute fracture or malalignment of the cervical spine.
--- NOTE | ~2023-04-25 | CT_ITS ---
EXAMINATION CT HEAD WITHOUT CONTRAST CT CERVICAL SPINE WITHOUT CONTRAST CLINICAL INFORMATION: Injury, pain COMPARISON: None TECHNIQUE: CT of the head was performed without intravenous contrast. Reformatted axial, coronal, and sagittal images were reviewed. Then, multidetector CT of the cervical spine was performed without intravenous contrast. Reformatted axial, coronal and sagittal images were reviewed. This CT examination was performed using dose optimization techniques as appropriate, variously including the following: *Automated exposure control *Adjustment of mA and/or kV according to patient size (this includes techniques or standardized protocols for targeted exams where dose is matched to indication/reason for exam; i.e. extremities or head) *Use of iterative reconstruction technique DLP: 832 mGy-cm FINDINGS: HEAD: No intracranial hemorrhage, extra-axial fluid collection, or midline shift is identified. Rubio-white matter differentiation is preserved. The ventricles are within normal limits. Basal cisterns are within normal limits. Left maxillary mucous retention cyst. Mastoid air cells and middle ear cavities are clear. No acute calvarial fractures. CERVICAL SPINE: There is no fracture, malalignment or prevertebral soft tissue abnormality seen in the cervical spine. There is no abnormal widening of the predental space, separation of the lateral masses of C1 or facet joint distraction. Vertebral body and intervertebral disc height are normal. No significant central canal or neuroforaminal stenosis. The visualized portions of the lung parenchyma is unremarkable. CT/CT cervical spine wo IV con IMPRESSION: CT HEAD: 1. No acute intracranial abnormality. CT CERVICAL SPINE: 1. No acute fracture or malalignment of the cervical spine.
[2023-04-25 22:46] VITALS: BP 120/75; BP 120/90; PULSE 118; PULSE 72; RESP 14; TEMP 36.8; O2SAT 100; O2SAT 98; BMI 26.9
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
--- NOTE | 2023-04-25 22:51 | PC.NURSE ---
manager front office staff aware of no visitors at this time. pt placed on heart monitor nsr 78 bpm. blood cleaned off of face/hands with warm water no lacerations/skin tears of head/neck. pt had acrylic nails that broke off; R. middle finger nail appears slightly detached from nail bed.
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
[2023-04-26 01:47] VITALS: BP 113/77; PULSE 95; RESP 16; O2SAT 98
== END 2023-04-26 01:48 | disposition home or self-care (01) ==
PROVIDERS: Emergency Provider Emergency Medicine Emergency Medical Services
DX: S06.0X0A Concussion without loss of consciousness, initial encounter (principal); S61.212A Laceration without foreign body of right middle finger without damage to nail, initial encounter; Y04.2XXA Assault by strike against or bumped into by another person, initial encounter; Y93.89 Activity, other specified; Y92.9 Unspecified place or not applicable; Y99.9 Unspecified external cause status
CPT/HCPCS: 12001; 70450; 72125; 99282; 99284

== ENCOUNTER 2023-08-02 12:08 | Emergency (ER) | payer OTHER, SELFPAY ==
--- NOTE | ~2023-08-02 | CT_ITS ---
EXAMINATION: CT ABDOMEN AND PELVIS WITHOUT CONTRAST CLINICAL INFORMATION: back pain, pain with urination, concern for stone. COMPARISON: 09/10/2022 CT scan. TECHNIQUE: Multidetector volumetric imaging was performed from the superior aspect of the liver through the pubic symphysis without contrast per renal stone protocol. Sagittal and coronal reformatted images were obtained on the technologist workstation. This CT examination was performed using dose optimization techniques as appropriate, variously including the following: *Automated exposure control *Adjustment of mA and/or kV according to patient size (this includes techniques or standardized protocols for targeted exams where dose is matched to indication/reason for exam; i.e. extremities or head) *Use of iterative reconstruction technique DLP: 355 mGy-cm. FINDINGS: LUNG BASES: The visualized lung bases are unremarkable. LIVER, GALLBLADDER, BILIARY TREE: Mild diffuse fatty infiltration of the liver but no focal hepatic lesion nor biliary ductal dilatation appreciated. The gallbladder is unremarkable with no evidence of radiopaque gallstones, gallbladder wall thickening, or obvious pericholecystic inflammatory changes. PANCREAS: Unremarkable. SPLEEN: Unremarkable. ADRENAL GLANDS: Unremarkable. KIDNEYS AND URETERS: The kidneys are normal in size, shape, and attenuation. No hydronephrosis, hydroureter, or perinephric stranding. No calculi. BLADDER: Decompressed GASTROINTESTINAL TRACT: A few scattered colonic diverticula are noted. I do not appreciate any colonic wall thickening or pericolonic inflammatory change to suggest diverticulitis. Normal visualized appendix in the right lower quadrant. Visualized small bowel unremarkable. ABDOMINAL WALL: No significant hernia is appreciated. LYMPHOVASCULAR STRUCTURES: No lymphadenopathy. The aorta is unremarkable.. PELVIC VISCERA: Unremarkable. OSSEUS STRUCTURES: Unremarkable. CT/CT abdomen pelvis wo IV con IMPRESSION: No acute intra-abdominal process seen. No renal or ureteric calculi. No obstructive changes to the kidneys. Mild diffuse fatty infiltration of the liver.
[2023-08-02 12:10] VITALS: BP 146/87; PULSE 120; RESP 16; TEMP 37.2; O2SAT 98; BMI 24.4
--- NOTE | 2023-08-02 12:12 | ED.GENADULT ---
HPI - General Adult General Chief complaint: Urogenital-Female Stated complaint: UTI? Time Seen by Provider: 08/02/23 12:32 Source: patient Mode of arrival: ambulatory Limitations: no limitations History of Present Illness HPI narrative: 28-year-old female presents to the ER for evaluation of difficulty and painful urination for the last 2 or 3 days. She states it has been worsening and significantly increased in intensity last night. She reports it is also associated with back pain and left inguinal pain. She also has had hematuria that is severe and started last night. She also feels like she can not empty her bladder and is only urinating small amounts. No history of any issues like this in the past. No significant medical history. She denies any fever or chills. Denies chance of . No vaginal discharge. MD complaint: Left lower quadrant pain, hematuria Onset (ago): day(s) Location: abdomen Radiation: back Severity: severe Severity scale (1-10): 10 Quality: stabbing Pain Consistency: colicky Relieving factors: none Treatments prior to arrival: none Related Data Previous Rx's ?Medication ?Instructions ?Recorded cefuroxime axetil 250 mg tablet 250 mg PO BID 7 days #14 tabs 10/10/22 ibuprofen 600 mg tablet 600 mg PO Q6H PRN fever or pain 10/10/22 #30 tabs doxycycline hyclate 100 mg tablet 100 mg PO BID 7 days #14 tabs 11/17/22 metronidazole 500 mg tablet 500 mg PO BID 14 days #28 tabs 11/17/22 cefuroxime axetil 250 mg tablet 250 mg PO BID 7 days #14 tabs 08/02/23 Allergies Allergy/AdvReac Type Severity Reaction Status Date / Time No Known Allergies Allergy Verified 08/02/23 12:10 Review of Systems Review of Systems: Yes all other systems are reviewed and are negative [facility] Social History Social History Alcohol intake: current Alcohol intake frequency: holidays/special occasions only Smoked in Last 30 Days: No Use of substances other than those prescribed or required for medical reasons: Yes Substance Use Type: Marijuana Substance Use Frequency: Weekly Last Used Substance: Days (ago) Advance Directives: No Advance Directives Information Provided: No Do you have a plan to hurt others: No Plan Patient : No Physical Exam ED Vital Signs: Vital Signs - 24 hr 08/02/23 12:10 08/02/23 13:02 08/02/23 15:17 Temperature 99.0 F 98.0 F 97.5 F Pulse Rate 120 H 95 71 Respiratory Rate 16 16 17 Blood Pressure 146/87 H 117/73 116/81 Pulse Oximetry 98 98 100 Oxygen Delivery Method Room Air Room Air Room Air BMI result Body Mass Index 24.4 Appearance: Alert. Oriented X3. Appears uncomfortable, holding lower abdomen Head: normocephalic, atraumatic. Eyes: Pupils equal, round and reactive to light. ENT: Pharynx normal. No tonsillar swelling or exudate. Neck: Normal inspection. Neck supple. CVS: Normal heart rate and rhythm. Pulses normal. Respiratory: No respiratory distress. Breath sounds normal. Abdomen: Soft w/ LLQ tenderness w/ guarding, no rebound, normal active +BS x4. +CVA tenderness on the left side. pelvic exam deferred Skin: Skin warm and dry. Normal skin color. Normal skin turgor. No rashes. Extremities: No lower extremity edema. No joint swelling. Neuro/psych: Oriented X 3. No motor deficit. No sensory deficit. CN II-XII intact. Normal speech and cognition. Course Course Course Narrative: RME performed by Saranya Taylor PA-C. Patient is a 28 year old assigned female at presenting to the emergency department with painful urination, low back pain, and blood in her urine. Patient states over the last couple of days she has had low back pain, blood in her urine, and pain with urination - she is concerned for UTI, cannot tolerate sitting down. Detailed physical exam and review of systems are deferred to the access clinician. Labs and imaging ordered. Patient placed back in the waiting room pending room availability and results. Medications Administered Discontinued Medications Generic Name Dose Route Start Last Admin Trade Name Freq PRN Reason Stop Dose Admin Sodium Chloride 1,000 mls @ 999 mls/hr 08/02/23 12:45 08/02/23 14:32 Ns IVCONT 08/02/23 13:45 Infused .Q1H1M NARDA Infusion Sodium Chloride 1,000 mls @ 999 mls/hr 08/02/23 14:30 08/02/23 14:32 Ns IV 08/02/23 15:30 999 mls/hr .Q1H1M NARDA Administration Ketorolac Tromethamine 30 mg 08/02/23 12:32 08/02/23 13:24 Ketorolac Tromethamine 30 Mg/Ml Vial IVPUSH 08/02/23 12:33 30 mg ONCE ONE Administration Medical Decision Making Medical Decision Making [facility] Narrative: 28-year-old female presents the ER for evaluation of 2-3 days of difficulty urinating, hematuria, left lower quadrant pain radiating to her back and left inguinal area. Initial concern was for kidney stone however CT scan of her abdomen was unremarkable. She does have a leukocytosis of 13,000 with hematuria and dysuria, most likely due to active infection. Patient unable to urinate, bladder scan with no urine in the bladder. She was given 2 L of IV fluids. Pain is improved with Toradol. After IVF patient able to urinate and empty her bladder. UA c/w infection. Given IV Rocephin. No fevers, vomiting, or other systemic signs of infection. she is tolerating PO and overall feeling better. stable for discharge home with PO abx. Differential Diagnosis Differential Diagnoses: The differential diagnosis associated with the presentation includes UTI, pyelonephritis, obstructing kidney stone with hydronephrosis, colitis, diverticulitis, bowel perforation Admission/Observation Consideration of admission/observation: Escalation of care including admission/observation considered Lab Data [facility] Lab Attestation statement: I reviewed the patient's lab results. Leukocytosis, normal LFTs 08/02/23 12:24 08/02/23 12:24 Labs: Lab Results 08/02/23 Range/Units 12:24 WBC 13.0 H (4.8-10.8) X10*3/uL RBC 4.22 (4.20-5.50) X10*6/uL Hgb 14.2 (12.0-16.0) g/dl Hct 40.8 (37.0-47.0) % MCV 96.7 (80.0-98.0) fL MCH 33.6 H (27.0-33.0) pg MCHC 34.8 (31.0-35.0) g/dl RDW 16.4 H (11.0-16.0) % Plt Count 286 (160-400) X10*3/uL MPV 10.3 (9.4-12.3) fL Immature Gran % (Auto) 0.2 (0.0-0.4) % Neut % (Auto) 71.2 (45-73) % Lymph % (Auto) 17.8 L (20-40) % [place] % (Auto) 9.3 (2-11) % Eos % (Auto) 1.1 (0-4) % Baso % (Auto) 0.4 (0-2) % Lymph # (Auto) 2.3 (1.2-4.9) X10*3/uL [place] # (Auto) 1.2 (0.1-1.2) X10*3/uL Eos # (Auto) 0.1 (0.0-0.4) X10*3/uL Baso # (Auto) 0.1 (0.0-0.2) X10*3/uL Abs Immat Gran (auto) 0.02 (0.00-0.03) X10*3/uL Absolute Neuts (auto) 9.3 H (2.0-8.3) x10*3/uL Absolute Nucleated RBC 0.000 (0.0-0.012) X10*3/uL Nucleated RBC % (auto) 0.0 (0.0-0.2) /100WBC Sodium 138 (135-145) mmol/L Potassium 3.5 (3.3-5.1) mmol/L Chloride 102 (96-108) mmol/L Carbon Dioxide 23 (22-29) mmol/L Anion Gap 17 (12-20) BUN 7 L (9-16) mg/dL Creatinine 0.67 (0.5-1.4) mg/dL Estim Creat Clear Calc 100.4 Estimated GFR > 60 Random Glucose 101 (60-115) mg/dL Calcium 9.9 D (8.4-10.2) mg/dL Magnesium 1.5 L (1.6-2.6) mg/dL Total Bilirubin 0.4 (0.0-1.0) mg/dL AST 42 H (5-31) U/L ALT 27 (0-31) U/L Alkaline Phosphatase 84 (39-117) U/L Total Protein 7.9 (6.5-8.0) g/dL Albumin 4.2 (3.5-5.0) g/dL Beta HCG, Quant < 2 mIU/mL Independent Interpretation I performed an independent interpretation of an: CT Scan Interpretation: CT scan with no hydronephrosis, no ureteral stones appreciated. Radiology Impression Discussion of test interpretation with radiology: I have reviewed the radiologist's reading. Radiologist Impression: EXAMINATION: CT ABDOMEN AND PELVIS WITHOUT CONTRAST CLINICAL INFORMATION: back pain, pain with urination, concern for stone. COMPARISON: 09/10/2022 CT scan. TECHNIQUE: Multidetector volumetric imaging was performed from the superior aspect of the liver through the pubic symphysis without contrast per renal stone protocol. Sagittal and coronal reformatted images were obtained on the technologist workstation. This CT examination was performed using dose optimization techniques as appropriate, variously including the following: *Automated exposure control *Adjustment of mA and/or kV according to patient size (this includes techniques or standardized protocols for targeted exams where dose is matched to indication/reason for exam; i.e. extremities or head) *Use of iterative reconstruction technique DLP: 355 mGy-cm. FINDINGS: LUNG BASES: The visualized lung bases are unremarkable. LIVER, GALLBLADDER, BILIARY TREE: Mild diffuse fatty infiltration of the liver but no focal hepatic lesion nor biliary ductal dilatation appreciated. The gallbladder is unremarkable with no evidence of radiopaque gallstones, gallbladder wall thickening, or obvious pericholecystic inflammatory changes. PANCREAS: Unremarkable. SPLEEN: Unremarkable. ADRENAL GLANDS: Unremarkable. KIDNEYS AND URETERS: The kidneys are normal in size, shape, and attenuation. No hydronephrosis, hydroureter, or perinephric stranding. No calculi. BLADDER: Decompressed GASTROINTESTINAL TRACT: A few scattered colonic diverticula are noted. I do not appreciate any colonic wall thickening or pericolonic inflammatory change to suggest diverticulitis. Normal visualized appendix in the right lower quadrant. Visualized small bowel unremarkable. ABDOMINAL WALL: No significant hernia is appreciated. LYMPHOVASCULAR STRUCTURES: No lymphadenopathy. The aorta is unremarkable.. PELVIC VISCERA: Unremarkable. OSSEUS STRUCTURES: Unremarkable. CT/CT abdomen pelvis wo IV con IMPRESSION: No acute intra-abdominal process seen. No renal or ureteric calculi. No obstructive changes to the kidneys. Mild diffuse fatty infiltration of the liver. External Record Review External record reviewed: Prior outpatient labs and Prior outpatient radiology Prescription Management I considered prescription management with: Pain Medication and Antibiotic Critical Care Time Critical Care Time Critical Care Time: Yes Total Critical Care Time: 34 Attestation: I have personally provided critical care time exclusive of time spent on separately billable procedures. Time includes review of lab data, radiology results, bedside reassessments, and monitoring for potential decompensation. Intervention performed as documented. Discharge Plan Discharge Clinical Impression: Urinary tract infection Patient Disposition: Home, Self-Care Instructions: Urinary Tract Infection in Women (DC) Additional Instructions: Your lab work today showed a slightly elevated white blood cell count. This is seen with infection. Your kidney function was normal on lab work. Your CT scan today was normal, no evidence of kidney stones. You have a urinary tract infection and were given 1 dose of IV antibiotics while in the emergency department today. Your being started on oral antibiotics, next dose is due tomorrow morning Take the prescribed antibiotics as directed, complete the entire course and do not miss any doses Drink plenty of water and stay hydrated. If you develop new or worsening symptoms call 911 or come back to the ER for further evaluation. Prescriptions: New cefuroxime axetil 250 mg tablet 250 mg PO BID 7 Days Qty: 14 0RF No Action cefuroxime axetil 250 mg tablet 250 mg PO BID 7 Days Qty: 14 0RF ibuprofen 600 mg tablet 600 mg PO Q6H PRN (Reason: fever or pain) Qty: 30 0RF doxycycline hyclate 100 mg tablet 100 mg PO BID 7 Days Qty: 14 0RF metronidazole 500 mg tablet 500 mg PO BID 14 Days Qty: 28 0RF Print Language: Macedonian
[2023-08-02 12:29] LABS: MANUAL DIFF FLAG NO
[2023-08-02 12:35] LABS: Basophils Absolute Auto 0.1 X10*3/uL (0.0-0.2); Basophils Percent Auto 0.4 % (0-2); Eosinophils Absolute Auto 0.1 X10*3/uL (0.0-0.4); Eosinophils Percent Auto 1.1 % (0-4); Hematocrit 40.8 % (37.0-47.0); Hemoglobin 14.2 g/dl (12.0-16.0); Imm Gran Abs Auto 0.02 X10*3/uL (0.00-0.03); Imm Gran Pct Auto 0.2 % (0.0-0.4); Lymphocytes Absolute Auto 2.3 X10*3/uL (1.2-4.9); Lymphocytes Percent Auto 17.8 % (20-40); Mean Corpuscular HGB Conc 34.8 g/dl (31.0-35.0); Mean Corpuscular Hemoglobin 33.6 pg (27.0-33.0); Mean Corpuscular Volume 96.7 fL (80.0-98.0); Mean Platelet Volume 10.3 fL (9.4-12.3); Monocytes Absolute Auto 1.2 X10*3/uL (0.1-1.2); Monocytes Percent Auto 9.3 % (2-11); Neutrophils Absolute Auto 9.3 x10*3/uL (2.0-8.3); Neutrophils Percent Auto 71.2 % (45-73); Platelet Count 286 X10*3/uL (160-400); Red Blood Count 4.22 X10*6/uL (4.20-5.50); Red Cell Distribution Width 16.4 % (11.0-16.0)
[2023-08-02 13:02] VITALS: BP 117/73; PULSE 95; RESP 16; TEMP 36.7; O2SAT 98
[2023-08-02] MEDS: 0.9 % Sodium Chloride 1,000 ML 999 ML IVCONT (13:24)
[2023-08-02] MEDS: Ketorolac Tromethamine 30 MG/ML VIAL IVPUSH (13:24)
[2023-08-02 13:31] LABS: Alanine Aminotransferase 27 U/L (0-31); Albumin Level 4.2 g/dL (3.5-5.0); Alkaline Phosphatase 84 U/L (39-117); Anion Gap 17 (12-20); Aspartate Amino Transferase 42 U/L (5-31); Bilirubin Total 0.4 mg/dL (0.0-1.0); Blood Urea Nitrogen 7 mg/dL (9-16); Calcium 9.9 mg/dL (8.4-10.2); Carbon Dioxide 23 mmol/L (22-29); Chloride 102 mmol/L (96-108); Creatinine Clr Calc Pharmacy 100.4; Estimated Glomerular Filt Rate > 60; Glucose Random 101 mg/dL (60-115); Magnesium 1.5 mg/dL (1.6-2.6); Potassium 3.5 mmol/L (3.3-5.1); Sodium 138 mmol/L (135-145); Total Protein 7.9 g/dL (6.5-8.0)
[2023-08-02 13:48] LABS: HCG Quantitative < 2 mIU/mL
[2023-08-02] MEDS: 0.9 % Sodium Chloride 1,000 ML 999 ML IV (14:32)
[2023-08-02 15:17] VITALS: BP 116/81; PULSE 71; RESP 17; TEMP 36.4; O2SAT 100
[2023-08-02] MEDS: Phenazopyridine HCL 100 MG TABLET PO (16:35)
[2023-08-02] MEDS: cefTRIAXone sodium 1 GM in 0.9 % Sodium Chloride 50 ML IV (16:36)
[2023-08-02 16:49] LABS: Color Urine Straw; Glucose Urine UA Negative (Negative); Leukocyte Esterase Urine Large (3+) (Negative); Nitrite Urine Negative (Negative); PH 6.5 (5.0-9.0); Specific Gravity - Urine <= 1.005 (1.005-1.025); UMIC TRIGGER UACC YES; Urine Blood Large (3+) (Negative); Urine Ketones Negative (Negative); Urine Protein 100 (2+) mg/dL (Neg-Trace)
[2023-08-02 16:50] LABS: Appearance Urine Cloudy; Bacteria Urine Trace (None Seen); Hyaline Casts Urine 0-2 /LPF (0-2); UACC Culture Trigger YES; WBC Urine >50 /HPF (0-5)
[2023-08-02 17:09] VITALS: BP 119/83; PULSE 73; RESP 18; TEMP 36.6; O2SAT 100
[2023-08-02 17:35] VITALS: BP 130/50; PULSE 66; RESP 18; TEMP 36.8; O2SAT 98
== END 2023-08-02 17:36 | disposition home or self-care (01) ==
PROVIDERS: Physician Assistant Medical; Emergency Provider Student in an Organized Health Care Education/Training Program
DX: N39.0 Urinary tract infection, site not specified (principal); R30.0 Dysuria; M54.50 Low back pain, unspecified; R10.32 Left lower quadrant pain; R31.9 Hematuria, unspecified; R11.2 Nausea with vomiting, unspecified; Z79.899 Other long term (current) drug therapy
CPT/HCPCS: 36415; 51798; 74176; 80053; 81001; 83735; 84702; 85025; 87086; 96361; 96374; 99285; J0696; J1885

== ENCOUNTER 2024-04-30 11:02 | Emergency (ER) | payer OTHER, SELFPAY ==
--- NOTE | 2024-04-30 11:23 | ED_ITS ---
HPI - General Adult General Chief complaint: Nausea/Vomiting/Diarrhea Stated complaint: flu symptoms Time Seen by Provider: 04/30/24 14:31 Source: patient Mode of arrival: ambulatory Limitations: no limitations History of Present Illness ED Provider: Saranya Taylor PA-C HPI narrative: Patient is a 28 year old assigned female at with no reported medical history presenting to the emergency department today with nausea, vomiting, headache, cough, and contact with an influenza positive individual. Patient states that yesterday she started having nausea, vomiting, headache, and cough. Patient states that her son is positive for influenza. Patient denies any dizziness, lightheadedness, abdominal pain, fever, chills, blurry vision, double vision, loss of vision, chest pain, difficulty breathing, shortness of breath, back pain, night sweats, pain with urination, increased urinary frequency, increased urinary urgency, blood in her urine or stool, syncope or a near syncopal episode, recent trauma or falls, bowel incontinence, bladder incontinence, or any other complaints at this time. Onset (ago): day(s) (1) Relieving factors: none Exacerbating factors: none Associated symptoms: headaches Treatments prior to arrival: none Related Data Previous Rx's ?Medication ?Instructions ?Recorded cefuroxime axetil 250 mg tablet 250 mg PO BID 7 days #14 tabs 10/10/22 ibuprofen 600 mg tablet 600 mg PO Q6H PRN fever or pain 10/10/22 #30 tabs doxycycline hyclate 100 mg tablet 100 mg PO BID 7 days #14 tabs 11/17/22 metronidazole 500 mg tablet 500 mg PO BID 14 days #28 tabs 11/17/22 cefuroxime axetil 250 mg tablet 250 mg PO BID 7 days #14 tabs 08/02/23 ondansetron 4 mg disintegrating 4 mg PO Q8H 3 days #9 tabs 04/30/24 tablet Allergies Allergy/AdvReac Type Severity Reaction Status Date / Time No Known Allergies Allergy Verified 04/30/24 11:25 Review of Systems 2 Constitutional: Constitutional: Reports no additional constitutional complaints, Denies chills, Denies fever(s), Reports headache(s) and Denies night sweats Eyes: Eyes: Reports no additional eye complaints, Denies blurry vision, Denies change in vision, Denies diplopia, Denies eye discharge, Denies loss of vision and Denies eye pain ENT: Denies dizziness and Reports headache(s) Cardiovascular: Cardiovascular: Reports no additional cardiovascular complaints, Denies chest pain, Denies lightheadedness, Denies Loss of Consciousness and Denies dyspnea Respiratory: Respiratory: Reports no additional respiratory complaints and Denies dyspnea Gastrointestinal: Gastrointestinal: Reports no additional gastrointestinal complaints, Denies abdominal pain, Denies melena, Denies hematochezia, Denies change in bowel habits, Denies change in stool character and Reports nausea Genitourinary: Genitourinary: Denies hematuria, Denies urinary frequency, Denies dysuria, Denies urinary incontinence, Denies urinary hesitancy and Denies urinary urgency Musculoskeletal: Musculoskeletal: Reports no additional musculoskeletal complaints, Denies numbness and Denies tingling Neurologic: Denies dizziness, Reports headache(s), Denies loss of vision, Denies numbness and Denies tingling Psychiatric: Psychiatric: Reports no additional psychiatric complaints Endocrine: Endocrine: Reports no additional endocrine complaints Hematologic/Lymphatic: Hematologic/Lymphatic: Reports no additional hematologic/lymphatic complaints Allergic/Immunologic: Allergic/Immunologic: Reports no additional allergic/immunologic complaints PMFSH Past Medical History Attestation statement: The following information was validated with the patient. Source: old records reviewed and nursing notes reviewed Social History Social History Alcohol intake: current Alcohol intake frequency: holidays/special occasions only Substance Use Type: Marijuana Advance Directives: No Advance Directives Information Provided: No Physical Exam ED Vital Signs: Vital Signs - 24 hr 04/30/24 11:24 04/30/24 14:31 04/30/24 14:35 Temperature 98.1 F 97.7 F 97.7 F Pulse Rate 67 54 54 Respiratory Rate 16 16 16 Blood Pressure 116/62 94/64 94/64 Pulse Oximetry 95 100 100 Oxygen Delivery Method Room Air BMI result Body Mass Index 25.5 Const General: cooperative, no acute distress, alert and awake Nutritional Appearance: well nourished Orientation/consciousness: patient oriented x3 Limitations: no limitations HENMT Head: Yes normal to inspection and Yes atraumatic Ears: hearing grossly normal bilaterally and external ears normal General nose exam: Normal external nose present, no nasal discharge noted and no epistaxis Face and sinus: Yes normal facial exam, No abrasion and No laceration Mouth: Normal oral and palatal mucosa present, no drooling and no muffled voice Eyes General: appearance normal, both eyes and all related structures Periorbital: periorbital findings normal Eyelids: Yes eyelids normal Conjunctivae: conjunctivae normal Pupils: Equal, round and reactive pupils present EOM: EOMs intact bilaterally Neck Neck: Yes normal visual inspection, Yes full ROM and Yes no lymphadenopathy Chest Chest palpation & inspection: normal inspection of the chest Resp Effort & Inspection: normal respiratory effort and able to speak in complete sentences GI Inspection: Yes normal to inspection Neuro General: patient oriented x3, moves all extremities and CN's II-XI intact bilaterally Cranial nerves: Yes Equal, round and reactive pupils present Cognition (Neuro): normal cognition Extrem General: Yes normal to inspection, Yes full ROM and Yes capillary refill normal Psych Appearance: grossly normal Mental Status: mental status grossly normal Affect: normal affect Attitude: cooperative Thought process: Normal thought process present Thought content: Normal thought content present Insight: Good insight present (Psych) Course Course Course Narrative: RME performed by Saranya Taylor PA-C. Patient is a 28 year old assigned female at presenting to the emergency department with nausea, vomiting, cough, and migraine headache. Patient states that her son came in yesterday and was positive for the flu. Detailed physical exam and review of systems are deferred to the director retirement. Labs and swabs ordered. Patient placed back in the waiting room pending room availability and results. Medical Decision Making Medical Decision Making MDM Narrative: Patient is a 28 year old assigned female at with no reported medical history presenting to the emergency department today with nausea, vomiting, headache, cough, and contact with an influenza positive individual. Patient's physical exam was unremarkable. Patient's blood work was unremarkable. Patient's influenza test was positive. I explained my physical exam findings as well as all test results to the patient. I answered all questions asked by the patient. I stressed the importance of the patient taking her medication as directed (either prescribed or as the over the counter packaging recommends). I stressed the importance of the patient following up with her primary care provider. I stressed the importance of the patient returning to the emergency department immediately if her symptoms were to worsen or if she were to develop any dizziness, shortness of breath, difficulty breathing, chest pain, blurry vision, loss of vision, nausea, vomiting, abdominal pain, fever, chills, back pain, or any other complaints. Patient verbalized agreement and understanding with this treatment plan and discharge. Differential Diagnosis Differential Diagnoses: The differential diagnosis associated with the presentation includes Influenza Nausea Vomiting COVID-19 Admission/Observation Consideration of admission/observation: Escalation of care including admission/observation considered Patient would have been admitted to the hospital had her work up had any findings where hospital admission was appropriate and her clinical presentation warranted hospital admission. Lab Data [facility] Lab Attestation statement: I reviewed the patient's lab results. My interpretation of these results are in the MDM Rationale portion of this note. 04/30/24 11:37 04/30/24 11:37 Labs: Lab Results 04/30/24 Range/Units 11:37 WBC 5.2 (4.8-10.8) X10*3/uL RBC 4.22 (4.20-5.50) X10*6/uL Hgb 12.9 (12.0-16.0) g/dl Hct 38.4 (37.0-47.0) % MCV 91.0 (80.0-98.0) fL MCH 30.6 (27.0-33.0) pg MCHC 33.6 (31.0-35.0) g/dl RDW 12.6 (11.0-16.0) % Plt Count 245 (160-400) X10*3/uL MPV 10.8 (9.4-12.3) fL Immature Gran % (Auto) 0.2 (0.0-0.4) % Neut % (Auto) 52.0 (45-73) % Lymph % (Auto) 33.3 (20-40) % Daniels % (Auto) 13.5 H (2-11) % Eos % (Auto) 0.6 (0-4) % Baso % (Auto) 0.4 (0-2) % Lymph # (Auto) 1.7 (1.2-4.9) X10*3/uL Daniels # (Auto) 0.7 (0.1-1.2) X10*3/uL Eos # (Auto) 0.0 (0.0-0.4) X10*3/uL Baso # (Auto) 0.0 (0.0-0.2) X10*3/uL Abs Immat Gran (auto) 0.01 (0.00-0.03) X10*3/uL Absolute Neuts (auto) 2.7 (2.0-8.3) x10*3/uL Absolute Nucleated RBC 0.000 (0.0-0.012) X10*3/uL Nucleated RBC % (auto) 0.0 (0.0-0.2) /100WBC Sodium 141 (135-145) mmol/L Potassium 4.0 (3.3-5.1) mmol/L Chloride 105 (96-108) mmol/L Carbon Dioxide 28 (22-29) mmol/L Anion Gap 12 (12-20) BUN 8 L (9-16) mg/dL Creatinine 0.74 (0.5-1.4) mg/dL Estim Creat Clear Calc 96.6 Estimated GFR > 60 Random Glucose 104 (60-115) mg/dL Calcium 9.9 (8.4-10.2) mg/dL Magnesium 2.0 (1.6-2.6) mg/dL Total Bilirubin 0.2 (0.0-1.0) mg/dL AST 27 (5-31) U/L ALT 21 (0-31) U/L Alkaline Phosphatase 66 (39-117) U/L Total Protein 8.3 H (6.5-8.0) g/dL Albumin 4.5 (3.5-5.0) g/dL Beta HCG, Quant < 2 mIU/mL Influenza Type A (PCR) POSITIVE A (Negative) Influenza Type B (PCR) NEGATIVE (Negative) RSV RNA Qual (PCR) NEGATIVE (Negative) SARS-CoV-2 RNA (RT-PCR) NEGATIVE (Negative) Tests considered The following testing was considered but not selected: I considered obtaining a chest x-ray however, the patient's current clinical presentation and work up did not warrant this. I discussed this with the patient who verbalized understanding and agreement. Discharge Plan Discharge Clinical Impression: Influenza, Nausea & vomiting Patient Disposition: Home, Self-Care Instructions: Influenza (DC), Acute Nausea and Vomiting (ED) Additional Instructions: Keep drinking fluids. IF you find yourself unable to keep ANY fluids down, proceed to your nearest emergency department immediately. Follow up with your primary care provider. Return to the emergency department immediately if your symptoms worsen or if you develop any dizziness, shortness of breath, difficulty breathing, chest pain, blurry vision, loss of vision, nausea, vomiting, abdominal pain, fever, chills, back pain, or any other complaints. Prescriptions: New ondansetron 4 mg tablet,disintegrating 4 mg PO Q8H 3 Days Qty: 9 0RF No Action cefuroxime axetil 250 mg tablet 250 mg PO BID 7 Days Qty: 14 0RF ibuprofen 600 mg tablet 600 mg PO Q6H PRN (Reason: fever or pain) Qty: 30 0RF cefuroxime axetil 250 mg tablet 250 mg PO BID 7 Days Qty: 14 0RF doxycycline hyclate 100 mg tablet 100 mg PO BID 7 Days Qty: 14 0RF metronidazole 500 mg tablet 500 mg PO BID 14 Days Qty: 28 0RF Referrals: [facility] [place] Group] (Call to establish and follow up with a primary care provider. If you already have a primary care provider, please follow up with them.) [facility] [place] [facility] [[facility] Group] (Call to establish and follow up with a primary care provider. If you already have a primary care provider, please follow up with them.) [facility] [place] [facility] [Provider Group] (Call to establish and follow up with a primary care provider. If you already have a primary care provider, please follow up with them.) [facility] [place] [facility] [Provider Group] (Call to establish and follow up with a primary care provider. If you already have a primary care provider, please follow up with them.) Interventions: ED Discharge Assessment Last Done: 04/30/24 14:35 Discharge Date/Time: 04/30/24 14:36 Print Language: Italian
[2024-04-30 11:24] VITALS: BP 116/62; PULSE 67; RESP 16; TEMP 36.7; O2SAT 95; BMI 25.5
[2024-04-30 11:50] LABS: MANUAL DIFF FLAG NO
[2024-04-30 11:52] LABS: Basophils Percent Auto 0.4 % (0-2); Eosinophils Percent Auto 0.6 % (0-4); Hematocrit 38.4 % (37.0-47.0); Hemoglobin 12.9 g/dl (12.0-16.0); Imm Gran Abs Auto 0.01 X10*3/uL (0.00-0.03); Imm Gran Pct Auto 0.2 % (0.0-0.4); Lymphocytes Absolute Auto 1.7 X10*3/uL (1.2-4.9); Lymphocytes Percent Auto 33.3 % (20-40); Mean Corpuscular HGB Conc 33.6 g/dl (31.0-35.0); Mean Corpuscular Hemoglobin 30.6 pg (27.0-33.0); Mean Platelet Volume 10.8 fL (9.4-12.3); Monocytes Absolute Auto 0.7 X10*3/uL (0.1-1.2); Monocytes Percent Auto 13.5 % (2-11); Neutrophils Absolute Auto 2.7 x10*3/uL (2.0-8.3); Platelet Count 245 X10*3/uL (160-400); Red Blood Count 4.22 X10*6/uL (4.20-5.50); Red Cell Distribution Width 12.6 % (11.0-16.0); White Blood Count 5.2 X10*3/uL (4.8-10.8)
[2024-04-30 12:14] LABS: Alanine Aminotransferase 21 U/L (0-31); Albumin Level 4.5 g/dL (3.5-5.0); Alkaline Phosphatase 66 U/L (39-117); Anion Gap 12 (12-20); Aspartate Amino Transferase 27 U/L (5-31); Bilirubin Total 0.2 mg/dL (0.0-1.0); Blood Urea Nitrogen 8 mg/dL (9-16); Calcium 9.9 mg/dL (8.4-10.2); Carbon Dioxide 28 mmol/L (22-29); Chloride 105 mmol/L (96-108); Creatinine Clr Calc Pharmacy 96.6; Estimated Glomerular Filt Rate > 60; Glucose Random 104 mg/dL (60-115); Sodium 141 mmol/L (135-145); Total Protein 8.3 g/dL (6.5-8.0)
[2024-04-30 12:20] LABS: HCG Quantitative < 2 mIU/mL
[2024-04-30 12:28] LABS: Influenza A PCR POSITIVE (Negative); Influenza B PCR NEGATIVE (Negative); Resp Syncy Virus RNA Qual PCR NEGATIVE (Negative); SARS COV2 PCR INHOUSE NEGATIVE (Negative)
[2024-04-30 14:31] VITALS: BP 94/64; PULSE 54; RESP 16; TEMP 36.5; O2SAT 100
[2024-04-30 14:35] VITALS: BP 94/64; PULSE 54; RESP 16; TEMP 36.5; O2SAT 100
== END 2024-04-30 14:36 | disposition home or self-care (01) ==
PROVIDERS: Physician Assistant Medical; Emergency Provider Emergency Medicine
DX: J10.1 Influenza due to other identified influenza virus with other respiratory manifestations (principal); R05.9 Cough, unspecified; R11.2 Nausea with vomiting, unspecified; Z03.818 Encounter for observation for suspected exposure to other biological agents ruled out
CPT/HCPCS: 0241U; 80053; 83735; 84702; 85025; 99282; 99283

== ENCOUNTER 2024-07-17 11:29 | Emergency (ER) | payer OTHER, SELFPAY ==
--- NOTE | ~2024-07-17 | US_ITS ---
CLINICAL HISTORY: Lower ABD pain cramping, vaginal bleeding, +preg US OB 1st trimester transabdominal Comparison: None Findings: Single intrauterine . CRL: 0.79 cm. EGA: 6 weeks 6 days. YANNI: 03/06/2023. Previously established gestational age: N/A. Normal yolk sac . Cardiac activity: 142 bpm. Subchorionic bleed measuring 3.1 x 1.5 x 3.4 cm. Bilateral ovaries are within normal limits. IMPRESSION: Single intrauterine estimated 6 weeks 6 days gestational age by today's ultrasound criteria. Subchorionic bleed measuring 3.1 x 1.5 x 3.4 cm. This document has been electronically signed by: Randy Monroy MD on 07/17/2024 15:27:53
[2024-07-17 11:34] VITALS: BP 143/82; PULSE 90; RESP 19; TEMP 36.6; O2SAT 99; BMI 22.5
--- NOTE | 2024-07-17 11:37 | ED.GENADULT ---
HPI - General Adult General Chief complaint: Vaginal Bleeding Stated complaint: vaginal bleeding, Time Seen by Provider: 07/17/24 14:28 Source: patient Mode of arrival: ambulatory Limitations: no limitations History of Present Illness ED Provider: Mary Shi NP HPI narrative: Patient is a 29-year-old female LMP early May does not recall the exact date presents for a few days with scant brown vaginal discharge and mild abdominal cramping. Has not required any sanitary napkin. Has yet to establish care with OBGYN, reports that she contacted [facility] and women's group but was advised she would be called back and said to 10 with tablets a new patient appointment. She denies any complications with her prior . She denies fevers, chills, nausea, vomiting, back pain, urinary symptoms. Related Data Previous Rx's ?Medication ?Instructions ?Recorded cefuroxime axetil 250 mg tablet 250 mg PO BID 7 days #14 tabs 10/10/22 ibuprofen 600 mg tablet 600 mg PO Q6H PRN fever or pain 10/10/22 #30 tabs doxycycline hyclate 100 mg tablet 100 mg PO BID 7 days #14 tabs 11/17/22 metronidazole 500 mg tablet 500 mg PO BID 14 days #28 tabs 11/17/22 cefuroxime axetil 250 mg tablet 250 mg PO BID 7 days #14 tabs 08/02/23 ondansetron 4 mg disintegrating 4 mg PO Q8H 3 days #9 tabs 04/30/24 tablet vit no.95-ferrous 1 tab PO DAILY #30 tabs 07/17/24 fumarate 28 mg-folic acid 800 mcg tablet () Allergies Allergy/AdvReac Type Severity Reaction Status Date / Time No Known Allergies Allergy Verified 07/17/24 11:35 Review of Systems Review of Systems: Yes all other systems are reviewed and are negative PMFSH Past Medical History Attestation statement: The following information was validated with the patient. Source: old records reviewed Social History Social History Alcohol intake: current Alcohol intake frequency: holidays/special occasions only Substance Use Type: Marijuana Advance Directives: No Advance Directives Information Provided: No Do you have a plan to hurt others: No Plan Physical Exam ED Vital Signs: Vital Signs - 24 hr 07/17/24 11:34 07/17/24 16:11 Temperature 98 F 97.9 F Pulse Rate 90 60 Respiratory Rate 19 18 Blood Pressure 143/82 H 104/63 Pulse Oximetry 99 98 Oxygen Delivery Method Room Air Room Air BMI result Body Mass Index 22.5 Appearance: Alert.?Oriented to person, place and time. No acute distress.?Normal affect. CVS: Heart sounds normal. Normal heart rate and rhythm.? Pulses normal.?? Respiratory: No respiratory distress.? Lung sounds clear to auscultation bilaterally?? Abdomen: Soft and non-tender. Normoactive bowel sounds. No CVA tenderness. Pelvic: Declines examination Skin: Skin warm and dry.? Normal skin color.? Extremities: No lower extremity edema.? Neuro: Moves all extremities spontaneously. Sensation intact bilaterally. Ambulates with normal steady gait. Course Course Course Narrative: RME: 29-year-old recently falling presents to ED for lower abdominal pain and small amount of vaginal bleeding. Patient denies any blood clots. Labs ordered Medical Decision Making Medical Decision Making MDM Narrative: Patient is a 29-year-old female who presents for scant brown vaginal discharge over the past few days as per HPI with mild abdominal cramping. Reports in significant amount not requiring a sanitary napkin, she declines internal pelvic examination. She had serum labs obtained prior to my assumption of care, beta hCG is 79,658, Rh positive not requiring RhoGAM no electrolyte derangement or WAQAS, CBC without leukocytosis notable anemia or thrombocytopenia. Urinalysis is pending at this time. Ultrasound was obtained revealing a single IUP with a proximate gestation of 6 weeks 6 days and subchorionic bleed measuring 3.1 X1.5 X3.4 cm. I will consult with DANDRE Luna, though dissipate conservative measures, and close outpatient follow-up. Given she has yet to establish even a new patient appointment to [facility] less than limits, with consult with office here to determine whether she will need sooner repeat ultrasound and/or hCG outside is worsening of her symptoms. Differential Diagnosis Differential Diagnoses: The differential diagnosis associated with the presentation includes (Bleeding in early , threatened , subchorionic hemorrhage, UTI) Consult Healthcare Provider Management of the patient was discussed with: Architecture Faculty Member (DANDRE) Lab Data MDM Lab Attestation statement: I reviewed the patient's lab results. (See narrative above) 07/17/24 12:11 07/17/24 12:11 Labs: Lab Results 07/17/24 07/17/24 Range/Units 12:11 16:27 WBC 8.2 (4.8-10.8) X10*3/uL RBC 4.12 L (4.20-5.50) X10*6/uL Hgb 12.5 (12.0-16.0) g/dl Hct 36.2 L (37.0-47.0) % MCV 87.9 (80.0-98.0) fL MCH 30.3 (27.0-33.0) pg MCHC 34.5 (31.0-35.0) g/dl RDW 12.0 (11.0-16.0) % Plt Count 350 D (160-400) X10*3/uL MPV 10.7 (9.4-12.3) fL Immature Gran % (Auto) 0.2 (0.0-0.4) % Neut % (Auto) 60.8 (45-73) % Lymph % (Auto) 29.2 (20-40) % [place] % (Auto) 9.4 (2-11) % Eos % (Auto) 0.2 (0-4) % Baso % (Auto) 0.2 (0-2) % Lymph # (Auto) 2.4 (1.2-4.9) X10*3/uL [place] # (Auto) 0.8 (0.1-1.2) X10*3/uL Eos # (Auto) 0.0 (0.0-0.4) X10*3/uL Baso # (Auto) 0.0 (0.0-0.2) X10*3/uL Abs Immat Gran (auto) 0.02 (0.00-0.03) X10*3/uL Absolute Neuts (auto) 5.0 (2.0-8.3) x10*3/uL Absolute Nucleated RBC 0.000 (0.0-0.012) X10*3/uL Nucleated RBC % (auto) 0.0 (0.0-0.2) /100WBC PT 14.0 H (10.9-12.4) SEC INR 1.2 H (0.9-1.1) APTT 32.9 (26.0-36.8) SEC Sodium 136 (135-145) mmol/L Potassium 3.3 (3.3-5.1) mmol/L Chloride 101 (96-108) mmol/L Carbon Dioxide 25 (22-29) mmol/L Anion Gap 13 (12-20) BUN 7 L (9-16) mg/dL Creatinine 0.62 (0.5-1.4) mg/dL Estim Creat Clear Calc 102.8 Estimated GFR > 60 Random Glucose 93 (60-115) mg/dL Calcium 9.5 (8.4-10.2) mg/dL Total Bilirubin 0.5 (0.0-1.0) mg/dL AST 19 (5-31) U/L ALT < 6 (0-31) U/L Alkaline Phosphatase 53 (39-117) U/L Total Protein 7.5 (6.5-8.0) g/dL Albumin 4.5 (3.5-5.0) g/dL Beta HCG, Quant 01478 mIU/mL Urine Color Yellow Urine Appearance Clear Urine pH 7.0 (5.0-9.0) Ur Specific [place] 1.025 (1.005-1.025) Urine Protein 30 (1+) H (Neg-Trace) mg/dL Urine Glucose (UA) Negative (Negative) mg/dL Urine Ketones 80 (Negative) mg/dL Urine Blood Large (3+) H (Negative) Urine Nitrite Negative (Negative) Ur Leukocyte Esterase Small (1+) H (Negative) Urine RBC 0-2 (0-2) /HPF Urine WBC 0-5 (0-5) /HPF Ur Squamous Epith Cells 6-10 (0-2) /HPF Urine Bacteria Trace (None Seen) Hyaline Casts 0-2 (0-2) /LPF Urine Test POSITIVE H (NEGATIVE) Blood Type O Positive Independent Interpretation I performed an independent interpretation of an: Ultrasound (Single IUP) Radiology Impression Discussion of test interpretation with radiology: I have reviewed the radiologist's reading. Radiologist Impression: US OB 1st trimester transabdominal Comparison: None Findings: Single intrauterine . CRL: 0.79 cm. EGA: 6 weeks 6 days. YANNI: 03/06/2025. Previously established gestational age: N/A. Normal yolk sac . Cardiac activity: 142 bpm. Subchorionic bleed measuring 3.1 x 1.5 x 3.4 cm. Bilateral ovaries are within normal limits. IMPRESSION: Single intrauterine estimated 6 weeks 6 days gestational age by today's ultrasound criteria. Subchorionic bleed measuring 3.1 x 1.5 x 3.4 cm. Independent Historian Clinical information obtained from an independent historian. History obtained from or confirmed by: Parent Discharge Plan Discharge Clinical Impression: Subchorionic hemorrhage in first trimester Patient Disposition: Home, Self-Care Instructions: Subchorionic Hemorrhage (ED) Additional Instructions: As discussed, it is important that you contact the OBGYN office to arrange for a new patient appointment so that you can have close follow-up. If you are having increased bleeding/spotting, persistent pelvic cramping or worsening pain you should return back to emergency department. Prescription for vitamin has been sent to your pharmacy to take daily. Testing has been sent in for vaginal infections, these results will not be available today, should there be any positive test results in the next few days you will receive a phone call from the office. As mentioned, climbing can have this type of bleeding in and continue on to have a normal , however there are any acute changes you should seek re-evaluation to assure all remains well with the Prescriptions: New PNV cmb#95-ferrous fumarate-FA [] 28 mg iron- 800 mcg tablet 1 tab PO DAILY Qty: 30 0RF No Action cefuroxime axetil 250 mg tablet 250 mg PO BID 7 Days Qty: 14 0RF ibuprofen 600 mg tablet 600 mg PO Q6H PRN (Reason: fever or pain) Qty: 30 0RF cefuroxime axetil 250 mg tablet 250 mg PO BID 7 Days Qty: 14 0RF ondansetron 4 mg tablet,disintegrating 4 mg PO Q8H 3 Days Qty: 9 0RF doxycycline hyclate 100 mg tablet 100 mg PO BID 7 Days Qty: 14 0RF metronidazole 500 mg tablet 500 mg PO BID 14 Days Qty: 28 0RF Referrals: Physician,None [Primary Care Provider] - Discharge Date/Time: 07/17/24 17:21 Print Language: Mohawk
[2024-07-17 12:15] LABS: MANUAL DIFF FLAG NO
[2024-07-17 12:18] LABS: Basophils Percent Auto 0.2 % (0-2); Eosinophils Percent Auto 0.2 % (0-4); Hematocrit 36.2 % (37.0-47.0); Hemoglobin 12.5 g/dl (12.0-16.0); Imm Gran Abs Auto 0.02 X10*3/uL (0.00-0.03); Imm Gran Pct Auto 0.2 % (0.0-0.4); Lymphocytes Absolute Auto 2.4 X10*3/uL (1.2-4.9); Lymphocytes Percent Auto 29.2 % (20-40); Mean Corpuscular HGB Conc 34.5 g/dl (31.0-35.0); Mean Corpuscular Hemoglobin 30.3 pg (27.0-33.0); Mean Corpuscular Volume 87.9 fL (80.0-98.0); Mean Platelet Volume 10.7 fL (9.4-12.3); Monocytes Absolute Auto 0.8 X10*3/uL (0.1-1.2); Monocytes Percent Auto 9.4 % (2-11); Neutrophils Percent Auto 60.8 % (45-73); Platelet Count 350 X10*3/uL (160-400); Red Blood Count 4.12 X10*6/uL (4.20-5.50); White Blood Count 8.2 X10*3/uL (4.8-10.8)
[2024-07-17 12:23] LABS: INTERNATIONAL NORM RATIO 1.2 (0.9-1.1)
[2024-07-17 12:26] LABS: Partial Thromboplastin Time 32.9 SEC (26.0-36.8)
[2024-07-17 12:37] LABS: Alanine Aminotransferase < 6 U/L (0-31); Albumin Level 4.5 g/dL (3.5-5.0); Alkaline Phosphatase 53 U/L (39-117); Anion Gap 13 (12-20); Aspartate Amino Transferase 19 U/L (5-31); Bilirubin Total 0.5 mg/dL (0.0-1.0); Blood Urea Nitrogen 7 mg/dL (9-16); Calcium 9.5 mg/dL (8.4-10.2); Carbon Dioxide 25 mmol/L (22-29); Chloride 101 mmol/L (96-108); Creatinine Clr Calc Pharmacy 102.8; Estimated Glomerular Filt Rate > 60; Glucose Random 93 mg/dL (60-115); Potassium 3.3 mmol/L (3.3-5.1); Sodium 136 mmol/L (135-145); Total Protein 7.5 g/dL (6.5-8.0)
[2024-07-17 13:12] LABS: HCG Quantitative 79658 mIU/mL
--- NOTE | 2024-07-17 16:02 | P.CONOB_ITS ---
COMMUNITY DEVELOPMENT PLANNER - CN: HPI Data of Consult Consult date: 07/17/24 Primary Care Provider: None Physician Consult Narrative Narrative: I was consulted on Rosa Andrade who is a 29 year old female with unknown last menstrual period, presenting to the emergency room with few day history scant brown vaginal discharge and mild abdominal cramping. Has yet to establish care with OBGYN, reports that she contacted [facility] and women's group but was advised she would be called back and said to 10 business days with tablets a new patient appointment. H&H within normal Blood type O positive Ob ultrasound done emergency room showed the following: Single intrauterine . CRL: 0.79 cm. EGA: 6 weeks 6 days. YANNI: 03/06/2025. Previously established gestational age: N/A. Normal yolk sac . Cardiac activity: 142 bpm. Subchorionic bleed measuring 3.1 x 1.5 x 3.4 cm. Bilateral ovaries are within normal limits. cc:: CC: OB [facility] Social History Social History Alcohol intake: current Alcohol intake frequency: holidays/special occasions only Substance Use Type: Marijuana Advance Directives: No Advance Directives Information Provided: No Do you have a plan to hurt others: No Plan Meds Allergies Allergy/AdvReac Type Severity Reaction Status Date / Time No Known Allergies Allergy Verified 07/17/24 11:35 COMMUNITY DEVELOPMENT PLANNER Physical Exam Vitals Vital signs: Temp Pulse Resp BP Pulse Ox O2 Del Method 98 F 90 19 143/82 H 99 Room Air 07/17/24 11:34 07/17/24 11:34 07/17/24 11:34 07/17/24 11:34 07/17/24 11:34 07/17/24 11:34 BMI result Body Mass Index 22.5 Additional Comments: Exam reported by LUIS FERNANDO Paiz being to emergency room as the following: Abdomen: Soft and non-tender. Normoactive bowel sounds. No CVA tenderness. Pelvic: Declined COMMUNITY DEVELOPMENT PLANNER - Results Labs 07/17/24 12:11 07/17/24 12:11 Labs: Short CBC 07/17/24 Range/Units 12:11 WBC 8.2 (4.8-10.8) X10*3/uL Hgb 12.5 (12.0-16.0) g/dl Hct 36.2 L (37.0-47.0) % Plt Count 350 D (160-400) X10*3/uL BMP 07/17/24 12:11 Sodium 136 Potassium 3.3 Chloride 101 Carbon Dioxide 25 BUN 7 L Creatinine 0.62 Calcium 9.5 Liver Function 07/17/24 Range/Units 12:11 Total Bilirubin 0.5 (0.0-1.0) mg/dL AST 19 (5-31) U/L ALT < 6 (0-31) U/L Alkaline Phosphatase 53 (39-117) U/L Albumin 4.5 (3.5-5.0) g/dL Assessment and Plan (1) Spotting in first trimester: Status: Acute Recommended the following to LUIS FERNANDO Paiz: GC/CT, BV panel and Trichomonas to be collected vitamin 1 tablet p.o. q.d. Close outpatient follow-up Instructions to be given to the patient to come back to emergency room in case of persistent or worsening of vaginal spotting/bleeding/pelvic cramping and to come back for an evaluation in the emergency room in case the patient has problems is not able to have with access to care a timely manner I spent a total of 20 minutes reviewing the chart, communicating to the emergency room provider and documenting in the medical record
[2024-07-17 16:11] VITALS: BP 104/63; PULSE 60; RESP 18; TEMP 36.6; O2SAT 98
[2024-07-17 16:48] LABS: Appearance Urine Clear; Color Urine Yellow; Glucose Urine UA Negative (Negative); Leukocyte Esterase Urine Small (1+) (Negative); Nitrite Urine Negative (Negative); Specific Gravity - Urine 1.025 (1.005-1.025); UMIC TRIGGER UACC YES; Urine Blood Large (3+) (Negative); Urine Ketones 80 mg/dL (Negative); Urine Protein 30 (1+) mg/dL (Neg-Trace)
[2024-07-17 16:49] LABS: UPreg QC Valid YES; Urine Pregnancy POSITIVE (NEGATIVE)
[2024-07-17 17:03] LABS: Bacteria Urine Trace (None Seen); Hyaline Casts Urine 0-2 /LPF (0-2); RBC Urine 0-2 /HPF (0-2); UACC Culture Trigger YES; WBC Urine 0-5 /HPF (0-5)
[2024-07-18 11:29] LABS: Bacterial Vaginosis PCR POSITIVE (Negative); Candida Group PCR NOT DETECTED (Not Detect); Candida glab krusei PCR NOT DETECTED (Not Detect); Trichomonas vaginalis PCR NOT DETECTED (Not Detect)
[2024-07-18 12:02] LABS: CT PCR NOT DETECTED (Not Detect.); NG PCR NOT DETECTED (Not Detect.)
== END 2024-07-17 17:21 | disposition home or self-care (01) ==
PROVIDERS: Nurse Practitioner Family; Physician Assistant; Emergency Provider Emergency Medicine
DX: O26.851 Spotting complicating pregnancy, first trimester (principal); O26.891 Other specified pregnancy related conditions, first trimester; R10.30 Lower abdominal pain, unspecified; N89.8 Other specified noninflammatory disorders of vagina; Z3A.01 Less than 8 weeks gestation of pregnancy
CPT/HCPCS: 36415; 76801; 80053; 81001; 81025; 81515; 84702; 85025; 85610; 85730; 86900; 86901; 87086; 87491; 87591; 99283; 99284

== ENCOUNTER → 2024-07-17 14:29 | Outpatient (BNV) | payer OTHER, SELFPAY | PROVIDERS: Emergency Provider Emergency Medicine; Visit Provider Radiology Diagnostic Radiology | DX: O26.851 Spotting complicating pregnancy, first trimester (principal); Z3A.01 Less than 8 weeks gestation of pregnancy | CPT/HCPCS: 76801 ==

== ENCOUNTER → 2024-07-17 14:54 | Outpatient (BNV) | payer OTHER, SELFPAY | PROVIDERS: Emergency Provider Emergency Medicine; Visit Provider Obstetrics & Gynecology | DX: O26.851 Spotting complicating pregnancy, first trimester (principal) | CPT/HCPCS: 99447 ==